=== PATIENT | male | born 1960 | race African-American/Black ===

== ENCOUNTER 2019-07-25 15:04 | Inpatient (IN) | payer OTHER ==
[~2019-07-25] VITALS: Ht 172.7 cm; Wt 74.8 kg
[2019-07-25 15:05] VITALS: BP 128/72
--- NOTE | 2019-07-25 15:05 | NUR ---
ED Nurse Note: Patient BIBA d/t lower abdominal pain since last PM. Patient states he has not been able to urinate x 2 days. Patient has 10/10 bloating pain in abdomen. Patient diaphoretic and grimacing, guarding abdomen. Patient on the civilian technician, blood collected and sent to lab.
[2019-07-25] MEDS ORDERED: Morphine Sulfate 2mg/ml Inj(IV/IM USE ONLY) IVP ONE (15:15)
[2019-07-25] MEDS ORDERED: Omnipaque-300 100ml vial INJ PRN (15:15)
[2019-07-25 16:03] LABS: BASOPHILS % (AUTO) 1.2 % (0.0-2.0); EOSINOPHILS % (AUTO) 2.3 % (0.0-3.0); HEMATOCRIT 47.6 % (42.0-52.0); HEMOGLOBIN 15.8 G/DL (14.2-18.0); MEAN CORPUSCULAR VOLUME 91 FL (80-99); MONOCYTES % (AUTO) 8.2 % (1.0-10.0); NEUTROPHILS % (AUTO) 47.3 % (45.0-75.0); PLATELET COUNT 224 K/UL (150-450); RED BLOOD COUNT 5.21 M/UL (4.70-6.10); RED CELL DISTRIBUTION WIDTH 12.2 % (11.6-14.8); WHITE BLOOD COUNT 5.7 K/UL (4.8-10.8)
--- NOTE | 2019-07-25 16:06 | Diagnostic Imaging Report ---
Indication: Shortness of breath Technique: XRAY Chest 1v Comparison: None Findings: Heart size and mediastinal contours are within normal limits for AP technique. There is no focal airspace consolidation, pneumothorax or pleural effusion. Osseous structures demonstrate no acute abnormality. A piercing is incidentally noted projecting over the left lower chest. Impression: No radiographic evidence of acute cardiopulmonary disease.
[2019-07-25 16:09] LABS: ANION GAP 9 mmol/L (5-15); BLOOD UREA NITROGEN 17 mg/dL (7-18); CALCIUM 9.5 MG/DL (8.5-10.1); CARBON DIOXIDE 29 MMOL/L (21-32); CHLORIDE 92 MMOL/L (98-107); CREATININE 1.3 MG/DL (0.55-1.30); INR 0.9 (0.9-1.1); POTASSIUM 4.4 MMOL/L (3.5-5.1); SODIUM 130 MMOL/L (136-145)
[2019-07-25] MEDS ORDERED: Insulin Human Regular 100units/ml 3ml IV ONE (16:30)
[2019-07-25 16:36] LABS: ALANINE AMINOTRANSFERASE 40 U/L (12-78); ALBUMIN 4.2 G/DL (3.4-5.0); ALKALINE PHOSPHATASE 87 U/L (46-116); ASPARTATE AMINO TRANSFERASE 17 U/L (15-37); BILIRUBIN,TOTAL 0.6 MG/DL (0.2-1.0)
[2019-07-25 17:00] VITALS: BP 124/70
--- NOTE | 2019-07-25 17:14 | Diagnostic Imaging Report ---
EXAM: CT CT Abdomen Pelvis w/Contrast INDICATION: Abdominal pain. COMPARISON: None TECHNIQUE: Axial images were obtained through the abdomen pelvis with intravenous contrast. Sagittal and coronal reformats are generated. All CT scans at this facility are performed using dose modulation techniques as appropriate to a performed exam including the following: automated exposure control with adjustment of the mA and/or kV according to patient size. RADIATION DOSE: CTDIvol: 4.4 mGy DLP: 244.3 mGy-cm Dose information generated by the CT scanner is available in PACS. FINDINGS: There is mild scarring noted in the right middle lobe adjacent to the right heart margin. The liver and spleen are homogeneous. Gallbladder is without sludge or stone and there is no wall thickening. The pancreas is unremarkable. Adrenals are normal in morphology. The kidneys are normal in size, shape and axis. Small bowel loops are nondistended. Increased stool lucencies noted throughout the colon. The appendix is not visualized. There is no free fluid or free air. No pathologic adenopathy demonstrated. [place] catheter noted in the bladder. Prostate is enlarged. There is no suspicious superficial soft tissue or osseous abnormality. IMPRESSION: INCREASED STOOL LUCENCIES THROUGHOUT THE COLON CONSISTENT WITH CONSTIPATION. ENLARGED PROSTATE. HAYS NOTED IN BLADDER.
--- NOTE | 2019-07-25 17:43 | Emergency Room Report ---
History of Present Illness General Chief Complaint: Abdominal Pain Source: Patient (Leigh Quintana) Present Illness HPI 58-year-old male with history of type 2 diabetes currently taking metformin brought in by paramedics due to 10 out of 10 abdominal pain and inability to urinate x1 day. Patient also complains of difficulty defecating. Denies any blood in stool. Denies any nausea vomiting. Denies chest pain, shortness of breath, headache or dizziness. Reports that he has been taking metformin and has been compliant. Denies being sexually active. (Leigh Quintana) Allergies: Coded Allergies: No Known Allergies (Unverified , 07/25/19) COVID-19 Screening Contact w/high risk pt: No Recent Travel to affected area: No Experienced COVID-19 symptoms?: No COVID-19 Testing performed ATTRACTION ATTENDANT: No (Leigh Quintana) Patient History Past Medical History: see triage record Past Surgical History: none Pertinent Family History: none Reviewed Nursing Documentation: PMH: Agreed; PSxH: Agreed (Leigh Quintana) Nursing Documentation-PMH Hx Diabetes: Yes (Leigh Quintana) Review of Systems All Other Systems: negative except mentioned in HPI (Leigh Quintana) Physical Exam Vital Signs Date Time Temp Pulse Resp B/P (MAP) Pulse Ox O2 Delivery O2 Flow Rate FiO2 07/25/19 14:59 98.6 84 18 128/72 (90) 99 Room Air Sp02 EP Interpretation: reviewed, normal General Appearance: alert, GCS 15, non-toxic, mild distress Head: normocephalic, atraumatic Eyes: bilateral eye normal inspection, bilateral eye PERRL ENT: hearing grossly normal, normal pharynx, no angioedema, normal voice Neck: full range of motion, supple/symm/no masses Respiratory: lungs clear, no rhonchi, no retraction Cardiovascular #1: regular rate, rhythm, no edema Gastrointestinal: non-distended, guarding Rectal: deferred Genitourinary: no CVA tenderness Musculoskeletal: back normal, digits/nails normal, no calf tenderness Neurologic: alert, motor strength/tone normal, oriented x3, sensory intact, responsive, speech normal Psychiatric: judgement/insight normal, memory normal, mood/affect normal, no suicidal/homicidal ideation Skin: no rash Lymphatic: no adenopathy (Leigh Quintana) Medical Decision Making PA Attestation All my diagnosis and treatment plans were reviewed ad discussed with my supervising physician Dr. Sheikh (Leigh Quintana) Diagnostic Impression: Primary Impression: DKA (diabetic ketoacidoses) Additional Impression: Urinary retention ER Course 58-year-old male with history of type 2 diabetes currently taking metformin brought in by paramedics due to 10 out of 10 abdominal pain and inability to urinate x1 day. Patient also complains of difficulty defecating. Denies any blood in stool. Denies any nausea vomiting. Denies chest pain, shortness of breath, headache or dizziness. Reports that he has been taking metformin and has been compliant. Denies being sexually active. Ddx considered but are not limited to: appendicitis, cholecystis, gastritis, gastroenteritis, UTI, pyelonephritis, SBO, diverticulitis, influenza with GI manifestation, [place], complication with DKA Vital signs: are WNL, pt. is afebrile H&PE are most consistent with: DKA, urinary retention ORDERS: abdominal CT, abdominal pain set, EKG, ED INTERVENTIONS: NS bolus, insulin Patient was evaluated in the context of the global COVID-19 pandemic, which necessitated consideration that the patient might be at risk for infection with the SARS-COV-2 virus that causes COVID-19. Institutional protocols and algorithms that pertain to the evaluation of patients at risk for COVID-19 are in a state of rapid change based on information relieved by multiple regulatory bodies including the CDC and the federal and state organizations. These policies and algorithms were followed during the patient's care in the ED. Patient was admitted with diagnosis of DKA and urinary retention to Dr. Daniels under supervision of : Kori pt stable at time of admission (Leigh Quintana) ER Course Patient seen by ROSIE Evans. Patient presented with difficulty urinating and constipation for 1 day. Patient found to be hyperglycemic with glucose greater than 900. Patient not in DKA. Patient to be admitted for further treatment and evaluation. (Cynthia Sheikh M.D.) EKG Diagnostic Results Rate: normal Rhythm: NSR ST Segments: no acute changes Other Impression No acute ST changes (Leigh Quintana) Chest X-Ray Diagnostic Results Chest X-Ray Diagnostic Results : Chest X-Ray Ordered: Yes # of Views/Limited/Complete: 1 View Indication: Other EP Interpretation: Yes PA Xray: Interpretation reviewed, by supervising MD, and agrees with findings. Interpretation: no consolidation, no effusion, no pneumothorax Impression: No acute disease Electronically Signed by: Leigh Bullard PA-C (Leigh Quintana) CT/MRI/US Diagnostic Results CT/MRI/US Diagnostic Results : Imaging Test Ordered: CT abdomen pelvis with contrast Impression Enlarged prostate, constipation otherwise within normal limit (Leigh Quintana) Last Vital Signs Date Time Temp Pulse Resp B/P (MAP) Pulse Ox O2 Delivery O2 Flow Rate FiO2 07/25/19 14:59 98.6 84 18 128/72 (90) 99 Room Air (Leigh Quintana) Disposition: ADMITTED INPATIENT Condition: Stable Referrals: NON PHYSICIAN (PCP) Leigh Quintana July 25, 2019 17:43 Cynthia Sheikh M.D. July 25, 2019 18:00
--- NOTE | 2019-07-25 17:45 | Consultation ---
History of Present Illness General Date patient seen: July 26, 2019 Chief Complaint: Abdominal Pain Present Illness HPI This is a 58 year old M with type II DM, essential hypertension , hyperlipidemia and history of incarceration ([id number]) presenting with chief complaint of abdominal pain and difficulty urinating. Patient reports of severe suprapubic pressure and difficulty with urination. He reports of chronic dysuria and inability to initiate urination for the last several years. He reports or prior hospitalization where he had to undergo straight cath/Bower placement to help with his condition. He has failed outpatient urology follow up to address his dysuria. Patient denies any hematuria, fever, chills, flank pain, nausea or vomiting. Patient also mentions that he was diagnosed with DM when during his incarceration. He mentions that he is on multiple PO glucose lowering agents as well as 18 U of Lantus QHS but he has not taken his Lantus since April 2019 after he was released from the shelter. Patient is also not clear which antihypertensive and lipid lowering agent he takes at home. No report of CP, SOB neurological deficit,cough, sick contacts or recent travel. Allergies: Coded Allergies: No Known Allergies (Unverified , 07/25/19) Patient History Healthcare decision maker Resuscitation status Advanced Directive on File Review of Systems All Other Systems: negative except mentioned in HPI Physical Exam General Appearance: WD/WN, no apparent distress Lines, tubes and drains: peripheral HEENT: normocephalic, atraumatic Neck: non-tender, normal alignment Respiratory/Chest: chest wall non-tender, lungs clear, normal breath sounds Cardiovascular/Chest: normal rate Abdomen: normal bowel sounds, non tender, soft Extremities: non-tender, normal inspection Neurologic: alert, oriented x 3 Last 24 Hour Vital Signs Date Time Temp Pulse Resp B/P (MAP) Pulse Ox O2 Delivery O2 Flow Rate FiO2 07/25/19 14:59 98.6 84 18 128/72 (90) 99 Room Air Laboratory Tests Test 07/25/19 15:10 White Blood Count 5.7 K/UL (4.8-10.8) Red Blood Count 5.21 M/UL (4.70-6.10) Hemoglobin 15.8 G/DL (14.2-18.0) Hematocrit 47.6 % (42.0-52.0) Mean Corpuscular Volume 91 FL (80-99) Mean Corpuscular Hemoglobin 30.2 PG (27.0-31.0) Mean Corpuscular Hemoglobin Concent 33.1 G/DL (32.0-36.0) Red Cell Distribution Width 12.2 % (11.6-14.8) Platelet Count 224 K/UL (150-450) Mean Platelet Volume 7.5 FL (6.5-10.1) Neutrophils (%) (Auto) 47.3 % (45.0-75.0) Lymphocytes (%) (Auto) 41.0 % (20.0-45.0) Monocytes (%) (Auto) 8.2 % (1.0-10.0) Eosinophils (%) (Auto) 2.3 % (0.0-3.0) Basophils (%) (Auto) 1.2 % (0.0-2.0) Prothrombin Time 10.1 SEC (9.30-11.50) Prothromb Time International Ratio 0.9 (0.9-1.1) Activated Partial Thromboplast Time 25 SEC (23-33) Sodium Level 130 MMOL/L (136-145) L Potassium Level 4.4 MMOL/L (3.5-5.1) Chloride Level 92 MMOL/L (98-107) L Carbon Dioxide Level 29 MMOL/L (21-32) Anion Gap 9 mmol/L (5-15) Blood Urea Nitrogen 17 mg/dL (7-18) Creatinine 1.3 MG/DL (0.55-1.30) Estimat Glomerular Filtration Rate > 60 mL/min (>60) Glucose Level 872 MG/DL (74-106) *H Calcium Level 9.5 MG/DL (8.5-10.1) Magnesium Level 2.4 MG/DL (1.8-2.4) Total Bilirubin 0.6 MG/DL (0.2-1.0) Aspartate Amino Transf (AST/SGOT) 17 U/L (15-37) Alanine Aminotransferase (ALT/SGPT) 40 U/L (12-78) Alkaline Phosphatase 87 U/L (46-116) Troponin I 0.000 ng/mL (0.000-0.056) Total Protein 7.1 G/DL (6.4-8.2) Albumin 4.2 G/DL (3.4-5.0) Globulin 2.9 g/dL Acetone Level Negative (NEGATIVE) Height (Feet): 5 Height (Inches): 8.00 Weight (Pounds): 165 Medications Current Medications Medications (Trade) Dose Ordered Sig/Giselle Route PRN Reason Start Time Stop Time Status Last Admin Dose Admin Iohexol (OMNIPAQUE-300 100ml) 100 ml NOW PRN INJ Radiology Procedure 07/25/19 15:15 07/27/19 15:12 Sodium Chloride 1,000 ml @ 100 mls/hr Q10H IV 07/25/19 15:15 08/24/19 15:14 07/25/19 15:37 Assessment/Plan Diagnosis [place] I: #DKA #CHANDRIKA #pseudohyponatremia #DM- #BPH #abdominal pain due to constipation - bower placed - IVF - insulin - monitor BG, electolytes and Cr - check A1c - trend sodium Ga Daniels M.D. July 25, 2019 17:45
--- NOTE | 2019-07-25 17:48 | NUR ---
ED Nurse Note: Urine sent to lab
[2019-07-25 18:53] LABS: APPEARANCE,URINE CLEAR; BILIRUBIN, URINE NEGATIVE (NEGATIVE); COLOR,URINE PALE YELLOW; GLUCOSE, URINE (UA) 4+ (NEGATIVE); KETONES,URINE NEGATIVE (NEGATIVE); LEUKOCYTE ESTERASE ,URINE NEGATIVE (NEGATIVE); NITRITE,URINE NEGATIVE (NEGATIVE); PH,URINE 7 (4.5-8.0); PROTEIN,URINE NEGATIVE (NEGATIVE); UROBILINOGEN,URINE NORMAL MG/DL (0.0-1.0)
--- NOTE | 2019-07-25 19:10 | NUR ---
HAND-OFF: Report given to Pari CEVALLOS.
--- NOTE | 2019-07-25 19:10 | NUR ---
ED Nurse Note: Pt resting in bed, VSS no ss of distress noted. All medications orders fulfilled, pt tolerated well no ss of distress noted. Pt output 2500 ml, ERMD aware. Will continue to monitor.
--- NOTE | 2019-07-25 19:15 | NUR ---
ED Nurse Note: Repeat BS check performed: 245 BS, ERMD notified. Will continue to monitor.
--- NOTE | 2019-07-25 20:16 | NUR ---
ED Nurse Note: Report given to Amy Triana on MS unit.
--- NOTE | 2019-07-25 20:25 | NUR ---
ER DISCHARGE NOTE: Patient is cleared to be discharged to [facility] unit per ERMD, pt is aox4, 97% on room air, with stable vital signs. pt was able to verbalize understanding. pt is able to ambulate with steady gait. pt took all belongings. Pt transferred to unit with 1 REGENERATION OPERATOR.
--- NOTE | 2019-07-25 20:28 | Consultation ---
History of Present Illness General Date patient seen: July 26, 2019 Reason for Hospitalization: Abdominal Pain Present Illness HPI 50-year-old male presents [facility] complaining of worsening abdominal pain intractable with some associated nausea. Found to be in DKA admitted for further care and management surgery called to evaluate for abdominal pain. Patient seen, [place], chart reviewed Allergies: Coded Allergies: No Known Allergies (Unverified , 07/25/19) COVID-19 Screening Contact w/high risk pt: No Recent Travel to affected area: No Experienced COVID-19 symptoms?: No Patient History History Provided By: Patient, Medical Record, PMD Healthcare decision maker Resuscitation status Advanced Directive on File Past Medical/Surgical History Past Medical/Surgical History: (1) Urinary retention (2) DKA (diabetic ketoacidoses) (3) Abdominal pain Review of Systems Review of Symptoms General ROS: no weight loss or fever Psychological ROS: no depression or mood changes, no memory loss Ophthalmic ROS: no visual changes or eye irritation ENT ROS: no nasal congestion, hearing loss, dizziness Allergy and Immunology ROS: no allergic symptoms or urticaria Hematological and Lymphatic ROS: no swollen glands, unusual bleeding or bruising Endocrine ROS: no polyuria, polydipsia, weight changes, temperature intolerance Respiratory ROS: no cough, shortness of breath, or wheezing Cardiovascular ROS: no chest pain or dyspnea on exertion Gastrointestinal ROS: denies abdominal pain, bright red blood in stool. Musculoskeletal ROS: no myalgias or arthralgias Neurological ROS: no TIA or stroke symptoms Dermatological ROS: no new or changing skin lesions, rashes or pruritis Physical Exam Physical Exam General appearance: alert, cooperative, no distress, appears stated age Head: Normocephalic, without obvious abnormality, atraumatic Eyes: conjunctivae/corneas clear. PERRL, EOM's intact. Fundi benign Throat: Lips, mucosa, and tongue normal. Teeth and gums normal Neck: supple, symmetrical, trachea midline, no adenopathy, thyroid: not enlarged, symmetric, no tenderness/mass/nodules, no carotid bruit and no JVD Lungs: clear to auscultation bilaterally Heart: regular rate and rhythm, S1, S2 normal, no murmur, click, rub or gallop Abdomen: soft, non-tender. Bowel sounds normal. No masses, no organomegaly Extremities: extremities normal, atraumatic, no cyanosis or edema Pulses: 2+ and symmetric Skin: Skin color, texture, turgor normal. No rashes or lesions Neurologic: Grossly normal Last 24 Hour Vital Signs Date Time Temp Pulse Resp B/P (MAP) Pulse Ox O2 Delivery O2 Flow Rate FiO2 07/25/19 19:00 98.6 07/25/19 17:00 95 19 124/70 98 Room Air 07/25/19 15:05 84 18 Room Air 07/25/19 15:05 98.6 102 18 128/72 99 Room Air 07/25/19 14:59 98.6 84 18 128/72 (90) 99 Room Air Laboratory Tests Test 07/25/19 15:10 07/25/19 17:40 White Blood Count 5.7 K/UL (4.8-10.8) Red Blood Count 5.21 M/UL (4.70-6.10) Hemoglobin 15.8 G/DL (14.2-18.0) Hematocrit 47.6 % (42.0-52.0) Mean Corpuscular Volume 91 FL (80-99) Mean Corpuscular Hemoglobin 30.2 PG (27.0-31.0) Mean Corpuscular Hemoglobin Concent 33.1 G/DL (32.0-36.0) Red Cell Distribution Width 12.2 % (11.6-14.8) Platelet Count 224 K/UL (150-450) Mean Platelet Volume 7.5 FL (6.5-10.1) Neutrophils (%) (Auto) 47.3 % (45.0-75.0) Lymphocytes (%) (Auto) 41.0 % (20.0-45.0) Monocytes (%) (Auto) 8.2 % (1.0-10.0) Eosinophils (%) (Auto) 2.3 % (0.0-3.0) Basophils (%) (Auto) 1.2 % (0.0-2.0) Prothrombin Time 10.1 SEC (9.30-11.50) Prothromb Time International Ratio 0.9 (0.9-1.1) Activated Partial Thromboplast Time 25 SEC (23-33) Sodium Level 130 MMOL/L (136-145) L Potassium Level 4.4 MMOL/L (3.5-5.1) Chloride Level 92 MMOL/L (98-107) L Carbon Dioxide Level 29 MMOL/L (21-32) Anion Gap 9 mmol/L (5-15) Blood Urea Nitrogen 17 mg/dL (7-18) Creatinine 1.3 MG/DL (0.55-1.30) Estimat Glomerular Filtration Rate > 60 mL/min (>60) Glucose Level 872 MG/DL (74-106) *H Calcium Level 9.5 MG/DL (8.5-10.1) Magnesium Level 2.4 MG/DL (1.8-2.4) Total Bilirubin 0.6 MG/DL (0.2-1.0) Aspartate Amino Transf (AST/SGOT) 17 U/L (15-37) Alanine Aminotransferase (ALT/SGPT) 40 U/L (12-78) Alkaline Phosphatase 87 U/L (46-116) Troponin I 0.000 ng/mL (0.000-0.056) Total Protein 7.1 G/DL (6.4-8.2) Albumin 4.2 G/DL (3.4-5.0) Globulin 2.9 g/dL Acetone Level Negative (NEGATIVE) Urine Color Pale yellow Urine Appearance Clear Urine pH 7 (4.5-8.0) Urine Specific [place] 1.005 (1.005-1.035) Urine Protein Negative (NEGATIVE) Urine Glucose (UA) 4+ (NEGATIVE) H Urine Ketones Negative (NEGATIVE) Urine Blood 3+ (NEGATIVE) H Urine Nitrite Negative (NEGATIVE) Urine Bilirubin Negative (NEGATIVE) Urine Urobilinogen Normal MG/DL (0.0-1.0) Urine Leukocyte Esterase Negative (NEGATIVE) Urine RBC 10-15 /HPF (0 - 0) H Urine WBC 0 /HPF (0 - 0) Urine Squamous Epithelial Cells None /LPF (NONE/OCC) Urine Bacteria None /HPF (NONE) Height (Feet): 5 Height (Inches): 8.00 Weight (Pounds): 165 Medications Current Medications Medications (Trade) Dose Ordered Sig/Giselle Route PRN Reason Start Time Stop Time Status Last Admin Dose Admin Iohexol (OMNIPAQUE-300 100ml) 100 ml NOW PRN INJ Radiology Procedure 07/25/19 15:15 07/27/19 15:12 Sodium Chloride 1,000 ml @ 100 mls/hr Q10H IV 07/25/19 15:15 08/24/19 15:14 07/25/19 15:37 Assessment/Plan Problem List: (1) Abdominal pain Assessment & Plan: Patient with abdominal pain etiology unknown DKA abnormal labs Abdominal exam fairly benign though does have some discomfort. Potential crampy abdominal pain related to enteritis No acute surgical invention planned Okay for diet We will follow with recommendations thank you ICD Codes: R10.9 - Unspecified abdominal pain SNOMED: 33195875 (2) Urinary retention ICD Codes: R33.9 - Retention of urine, unspecified SNOMED: 697999942 (3) DKA (diabetic ketoacidoses) ICD Codes: E11.10 - Type 2 diabetes mellitus with ketoacidosis without coma SNOMED: 976479133, [id number] Arslan Lackey July 25, 2019 20:28
--- NOTE | 2019-07-25 20:45 | NUR ---
NURSE NOTES: Pt. received from BAN Yañez. Pt. AAOx4, on room air, breathing even and unlabored with no indication of respiratory distress and no complaints of pain. IV noted left AC 20g intact and patent. Em intact and patent, draining yellow urine well. Skin intact, VSS, belongings checked and verified, pt. requested to keep all belongings. Pt. oriented to room, given call light and instructed on patient safety and utilizing call light. Bed is low and locked, side rails x2 up, bed alarm active. Will call Dr. Daniels for admitting orders and will continue to monitor.
--- NOTE | 2019-07-25 20:50 | NUR ---
NURSE NOTES: Dr. Daniels instructed to call Dr. Foote for admission orders.
--- NOTE | 2019-07-25 21:26 | History and Physical ---
History of Present Illness General Date patient seen: July 25, 2019 Reason for Hospitalization: Abdominal PainDysuriaHyperglycemia Present Illness HPI Mr. Chowdary is a58 YO M with type II DM, essential hypertension, hyperlipidemia and history of incarceration ([id number]) presenting with chief complaint of abdominal pain and difficulty urinating. Patient reports of severe suprapubic pressure and difficulty with urination. He reports of chronic dysuria and inability to initiate urination for the last several years. He reports or prior hospitalization where he had to undergo straight cath/Em placement to help with his condition. He has failed outpatient urology follow up to address his dysuria. Patient denies any hematuria, fever, chills, flank pain, nausea or vomiting. Patient also mentions that he was diagnosed with DM when during his incarceration. He mentions that he is on multiple PO glucose lowering agents as well as 18 U of Lantus QHS but he has not taken his Lantus since April 2019 after he was released from the retirement. Patient is also not clear which antihypertensive and lipid lowering agent he takes at home. Patient denies any CP,SOB, neurological deficit,cough, sick contacts or recent travel. On arrival to the ED, vitals were unremarkable. The CMP significant for Na: 130 and glucose 872 without any evidence of ketones in the urine. He is being admitted for further observation and medical management. Allergies: Coded Allergies: No Known Allergies (Unverified , 07/25/19) COVID-19 Screening Contact w/high risk pt: No Recent Travel to affected area: No Experienced COVID-19 symptoms?: No Patient History Healthcare decision maker Resuscitation status Advanced Directive on File Review of Systems Constitutional: Reports: no symptoms Eye: Reports: no symptoms ENT: Reports: no symptoms Respiratory: Reports: no symptoms Cardiovascular: Reports: no symptoms Genitourinary: Reports: dysuria, retention Musculoskeletal: Reports: no symptoms Skin: Reports: no symptoms Psychiatric: Reports: no symptoms Neurological: Reports: no symptoms Endocrine: Reports: no symptoms Hematologic/Lymphatic: Reports: no symptoms Physical Exam General Appearance: no apparent distress, alert Lines, tubes and drains: peripheral HEENT: normocephalic, atraumatic Neck: non-tender, normal alignment, normal inspection Respiratory/Chest: chest wall non-tender, no respiratory distress, no accessory muscle use Cardiovascular/Chest: normal peripheral pulses, normal rate, regular rhythm Abdomen: normal bowel sounds, non tender, soft, no organomegaly, no mass Genitourinary/Rectal: other - Em in place Extremities: normal range of motion, non-tender Skin Exam: normal pigmentation Neurologic: alert, oriented x 3, responsive Musculoskeletal: normal muscle bulk Last 24 Hour Vital Signs Date Time Temp Pulse Resp B/P (MAP) Pulse Ox O2 Delivery O2 Flow Rate FiO2 07/25/19 20:25 98.6 67 16 113/66 98 Room Air 07/25/19 19:00 98.6 07/25/19 17:00 95 19 124/70 98 Room Air 07/25/19 15:05 84 18 Room Air 07/25/19 15:05 98.6 102 18 128/72 99 Room Air 07/25/19 14:59 98.6 84 18 128/72 (90) 99 Room Air Laboratory Tests Test 07/25/19 15:10 07/25/19 17:40 White Blood Count 5.7 K/UL (4.8-10.8) Red Blood Count 5.21 M/UL (4.70-6.10) Hemoglobin 15.8 G/DL (14.2-18.0) Hematocrit 47.6 % (42.0-52.0) Mean Corpuscular Volume 91 FL (80-99) Mean Corpuscular Hemoglobin 30.2 PG (27.0-31.0) Mean Corpuscular Hemoglobin Concent 33.1 G/DL (32.0-36.0) Red Cell Distribution Width 12.2 % (11.6-14.8) Platelet Count 224 K/UL (150-450) Mean Platelet Volume 7.5 FL (6.5-10.1) Neutrophils (%) (Auto) 47.3 % (45.0-75.0) Lymphocytes (%) (Auto) 41.0 % (20.0-45.0) Monocytes (%) (Auto) 8.2 % (1.0-10.0) Eosinophils (%) (Auto) 2.3 % (0.0-3.0) Basophils (%) (Auto) 1.2 % (0.0-2.0) Prothrombin Time 10.1 SEC (9.30-11.50) Prothromb Time International Ratio 0.9 (0.9-1.1) Activated Partial Thromboplast Time 25 SEC (23-33) Sodium Level 130 MMOL/L (136-145) L Potassium Level 4.4 MMOL/L (3.5-5.1) Chloride Level 92 MMOL/L (98-107) L Carbon Dioxide Level 29 MMOL/L (21-32) Anion Gap 9 mmol/L (5-15) Blood Urea Nitrogen 17 mg/dL (7-18) Creatinine 1.3 MG/DL (0.55-1.30) Estimat Glomerular Filtration Rate > 60 mL/min (>60) Glucose Level 872 MG/DL (74-106) *H Calcium Level 9.5 MG/DL (8.5-10.1) Magnesium Level 2.4 MG/DL (1.8-2.4) Total Bilirubin 0.6 MG/DL (0.2-1.0) Aspartate Amino Transf (AST/SGOT) 17 U/L (15-37) Alanine Aminotransferase (ALT/SGPT) 40 U/L (12-78) Alkaline Phosphatase 87 U/L (46-116) Troponin I 0.000 ng/mL (0.000-0.056) Total Protein 7.1 G/DL (6.4-8.2) Albumin 4.2 G/DL (3.4-5.0) Globulin 2.9 g/dL Acetone Level Negative (NEGATIVE) Urine Color Pale yellow Urine Appearance Clear Urine pH 7 (4.5-8.0) Urine Specific [place] 1.005 (1.005-1.035) Urine Protein Negative (NEGATIVE) Urine Glucose (UA) 4+ (NEGATIVE) H Urine Ketones Negative (NEGATIVE) Urine Blood 3+ (NEGATIVE) H Urine Nitrite Negative (NEGATIVE) Urine Bilirubin Negative (NEGATIVE) Urine Urobilinogen Normal MG/DL (0.0-1.0) Urine Leukocyte Esterase Negative (NEGATIVE) Urine RBC 10-15 /HPF (0 - 0) H Urine WBC 0 /HPF (0 - 0) Urine Squamous Epithelial Cells None /LPF (NONE/OCC) Urine Bacteria None /HPF (NONE) Height (Feet): 5 Height (Inches): 8.00 Weight (Pounds): 165 Medications Current Medications Medications (Trade) Dose Ordered Sig/Giselle Route PRN Reason Start Time Stop Time Status Last Admin Dose Admin Iohexol (OMNIPAQUE-300 100ml) 100 ml NOW PRN INJ Radiology Procedure 07/25/19 15:15 07/27/19 15:12 Sodium Chloride 1,000 ml @ 100 mls/hr Q10H IV 07/25/19 15:15 08/24/19 15:14 07/25/19 15:37 Assessment/Plan Assessment/Plan: 58 YO M with DMII, HTN, HLD and history of incarceration (2006- 2019) presenting with suprapubic pain Patient found to have significant urinary retention requiring Em catheter. Parent's labs values also significant for hyperglycemia with serum glucose: 872. #Insulin dependant type II DM - Uncontrolled. #Hyperglycemia #Medication non-compliance -Serum g; No signs of DKA -s/p 10U of regular insulin in the Emergency Department. -Admit to inpatient. -Initiate insulin sliding scale. -Insulin Levemir 10U QHS. -Diabetic diet. -IVF 75 cc/hr -A1c ordered. -A.M lipid panel ordered. -Endocrinology consult in the A.M. -Importance of medication compliance emphasized. #Urinary retention-Chronic -Etiologies include severe BPH vs. obstructive mass lesion of the urinary tract -Continue with Em catheter. -UA with reflex to culture ordered. -Urology consultation in the A.M. #Essential hypertension: -Home medications unknown. -Currently stable -Continue to monitor. -PRN antihypertensives. #Hyperlipidemia: -Home medication unknown. -Lipid panel ordered. -Will initiate Lipitor 80 in the setting of uncontrolled type II DM and primary hypertension. I spent~72~minutes on this patient's case, and 35~minutes was dedicated to counseling and/or care coordination. Case discussed extensively with the caregiver (Mika). Case discussed with the RN. I spent an additional 32~min on chart review including prior consult notes, progress notes, procedures, imaging, labs hemodynamics and clinical documentation. Nain Fregoso M.D. July 25, 2019 21:26
--- NOTE | 2019-07-25 22:00 | NUR ---
NURSE NOTES: Orders received from Dr. Fregoso, will implement and continue with plan of care.
[2019-07-26] VITALS: BP 107/72
[2019-07-26 00:52] LABS: APPEARANCE,URINE CLEAR; BILIRUBIN, URINE NEGATIVE (NEGATIVE); COLOR,URINE PALE YELLOW; GLUCOSE, URINE (UA) 4+ (NEGATIVE); KETONES,URINE NEGATIVE (NEGATIVE); LEUKOCYTE ESTERASE ,URINE NEGATIVE (NEGATIVE); NITRITE,URINE NEGATIVE (NEGATIVE); PH,URINE 6.5 (4.5-8.0); PROTEIN,URINE NEGATIVE (NEGATIVE); UROBILINOGEN,URINE NORMAL MG/DL (0.0-1.0)
[2019-07-26 04:00] VITALS: BP 105/74
[2019-07-26] MEDS: NovoLOG Insulin Flexpen SUBQ SCH ×2 (06:04→12:56)
[2019-07-26 07:27] LABS: BASOPHILS % (AUTO) 1.4 % (0.0-2.0); EOSINOPHILS % (AUTO) 3.3 % (0.0-3.0); HEMATOCRIT 38.9 % (42.0-52.0); HEMOGLOBIN 14.4 G/DL (14.2-18.0); LYMPHOCYTES % (AUTO) 31.9 % (20.0-45.0); MEAN CORPUSCULAR VOLUME 84 FL (80-99); NEUTROPHILS % (AUTO) 56.4 % (45.0-75.0); PLATELET COUNT 192 K/UL (150-450); RED BLOOD COUNT 4.64 M/UL (4.70-6.10); RED CELL DISTRIBUTION WIDTH 10.8 % (11.6-14.8); WHITE BLOOD COUNT 5.5 K/UL (4.8-10.8)
--- NOTE | 2019-07-26 07:44 | NUR ---
HAND-OFF: Report given to BAN Tapia.
--- NOTE | 2019-07-26 07:55 | NUR ---
Made AM rounds, pt is asleep in bed. respiration is even and unlabored. no facial grimacing for pain and discomfort noted. no acute distress noted at this time. LAC IV is inplace, bed locked for safety. call light is within reach.
[2019-07-26 07:58] LABS: ALANINE AMINOTRANSFERASE 37 U/L (12-78); ALBUMIN 3.1 G/DL (3.4-5.0); ALBUMIN/GLOBULIN RATIO 1.2 (1.0-2.7); ALKALINE PHOSPHATASE 60 U/L (46-116); ANION GAP 6 mmol/L (5-15); ASPARTATE AMINO TRANSFERASE 22 U/L (15-37); BILIRUBIN,TOTAL 0.9 MG/DL (0.2-1.0); BLOOD UREA NITROGEN 11 mg/dL (7-18); CALCIUM 8.3 MG/DL (8.5-10.1); CARBON DIOXIDE 28 MMOL/L (21-32); CHLORIDE 107 MMOL/L (98-107); CHOLESTEROL 165 MG/DL (< 200); CREATININE 1.1 MG/DL (0.55-1.30); HDL CHOLESTEROL 62 MG/DL (40-60); PHOSPHORUS 2.6 MG/DL (2.5-4.9); POTASSIUM 4.1 MMOL/L (3.5-5.1); SODIUM 140 MMOL/L (136-145); TRIGLYCERIDES 53 MG/DL (30-150)
[2019-07-26] MEDS ORDERED: Heparin 5000 units/ml inj SUBQ SCH (09:00)
--- NOTE | 2019-07-26 10:50 | Surgery Progress Note ---
Surgery Progress Note Subjective Symptoms: improved, tolerating diet, passing flatus, pain decreased Objective Last 24 Hour Vital Signs Date Time Temp Pulse Resp B/P (MAP) Pulse Ox O2 Delivery O2 Flow Rate FiO2 07/26/19 04:00 98.0 65 18 105/74 (84) 97 07/26/19 00:00 97.1 57 16 107/72 (84) 97 07/25/19 22:30 Room Air 07/25/19 20:25 98.6 67 16 113/66 98 Room Air 07/25/19 19:00 98.6 07/25/19 17:00 95 19 124/70 98 Room Air 07/25/19 15:05 84 18 Room Air 07/25/19 15:05 98.6 102 18 128/72 99 Room Air 07/25/19 14:59 98.6 84 18 128/72 (90) 99 Room Air I&O Intake and Output 07/25/19 07/26/19 19:00 07:00 Intake Total 0 ml 825 ml Output Total 2700 ml Balance 0 ml -1875 ml Intake Oral 0 ml 300 ml IV Total 525 ml Output Urine Total 2700 ml # Voids 1 Cardiovascular: RSR Respiratory: clear Abdomen: soft, non-tender, present bowel sounds Extremities: no edema, no tenderness, no cyanosis Laboratory Tests Test 07/25/19 15:10 07/25/19 17:40 07/26/19 00:30 07/26/19 06:45 White Blood Count 5.7 K/UL (4.8-10.8) 5.5 K/UL (4.8-10.8) Red Blood Count 5.21 M/UL (4.70-6.10) 4.64 M/UL (4.70-6.10) L Hemoglobin 15.8 G/DL (14.2-18.0) 14.4 G/DL (14.2-18.0) Hematocrit 47.6 % (42.0-52.0) 38.9 % (42.0-52.0) L Mean Corpuscular Volume 91 FL (80-99) 84 FL (80-99) Mean Corpuscular Hemoglobin 30.2 PG (27.0-31.0) 30.9 PG (27.0-31.0) Mean Corpuscular Hemoglobin Concent 33.1 G/DL (32.0-36.0) 36.9 G/DL (32.0-36.0) H Red Cell Distribution Width 12.2 % (11.6-14.8) 10.8 % (11.6-14.8) L Platelet Count 224 K/UL (150-450) 192 K/UL (150-450) Mean Platelet Volume 7.5 FL (6.5-10.1) 6.3 FL (6.5-10.1) L Neutrophils (%) (Auto) 47.3 % (45.0-75.0) 56.4 % (45.0-75.0) Lymphocytes (%) (Auto) 41.0 % (20.0-45.0) 31.9 % (20.0-45.0) Monocytes (%) (Auto) 8.2 % (1.0-10.0) 7.0 % (1.0-10.0) Eosinophils (%) (Auto) 2.3 % (0.0-3.0) 3.3 % (0.0-3.0) H Basophils (%) (Auto) 1.2 % (0.0-2.0) 1.4 % (0.0-2.0) Prothrombin Time 10.1 SEC (9.30-11.50) Prothromb Time International Ratio 0.9 (0.9-1.1) Activated Partial Thromboplast Time 25 SEC (23-33) Sodium Level 130 MMOL/L (136-145) L 140 MMOL/L (136-145) # Potassium Level 4.4 MMOL/L (3.5-5.1) 4.1 MMOL/L (3.5-5.1) Chloride Level 92 MMOL/L (98-107) L 107 MMOL/L (98-107) Carbon Dioxide Level 29 MMOL/L (21-32) 28 MMOL/L (21-32) Anion Gap 9 mmol/L (5-15) 6 mmol/L (5-15) Blood Urea Nitrogen 17 mg/dL (7-18) 11 mg/dL (7-18) Creatinine 1.3 MG/DL (0.55-1.30) 1.1 MG/DL (0.55-1.30) Estimat Glomerular Filtration Rate > 60 mL/min (>60) > 60 mL/min (>60) Glucose Level 872 MG/DL (74-106) *H 306 MG/DL (74-106) #H Calcium Level 9.5 MG/DL (8.5-10.1) 8.3 MG/DL (8.5-10.1) L Magnesium Level 2.4 MG/DL (1.8-2.4) 1.9 MG/DL (1.8-2.4) Total Bilirubin 0.6 MG/DL (0.2-1.0) 0.9 MG/DL (0.2-1.0) Aspartate Amino Transf (AST/SGOT) 17 U/L (15-37) 22 U/L (15-37) Alanine Aminotransferase (ALT/SGPT) 40 U/L (12-78) 37 U/L (12-78) Alkaline Phosphatase 87 U/L (46-116) 60 U/L (46-116) Troponin I 0.000 ng/mL (0.000-0.056) 0.000 ng/mL (0.000-0.056) Total Protein 7.1 G/DL (6.4-8.2) 5.7 G/DL (6.4-8.2) L Albumin 4.2 G/DL (3.4-5.0) 3.1 G/DL (3.4-5.0) L Globulin 2.9 g/dL 2.6 g/dL Acetone Level Negative (NEGATIVE) Urine Color Pale yellow Pale yellow Urine Appearance Clear Clear Urine pH 7 (4.5-8.0) 6.5 (4.5-8.0) Urine Specific [place] 1.005 (1.005-1.035) 1.015 (1.005-1.035) Urine Protein Negative (NEGATIVE) Negative (NEGATIVE) Urine Glucose (UA) 4+ (NEGATIVE) H 4+ (NEGATIVE) H Urine Ketones Negative (NEGATIVE) Negative (NEGATIVE) Urine Blood 3+ (NEGATIVE) H 2+ (NEGATIVE) H Urine Nitrite Negative (NEGATIVE) Negative (NEGATIVE) Urine Bilirubin Negative (NEGATIVE) Negative (NEGATIVE) Urine Urobilinogen Normal MG/DL (0.0-1.0) Normal MG/DL (0.0-1.0) Urine Leukocyte Esterase Negative (NEGATIVE) Negative (NEGATIVE) Urine RBC 10-15 /HPF (0 - 0) H 2-4 /HPF (0 - 0) H Urine WBC 0 /HPF (0 - 0) 2-4 /HPF (0 - 0) Urine Squamous Epithelial Cells None /LPF (NONE/OCC) Occasional /LPF Urine Bacteria None /HPF (NONE) Occasional /HPF (NONE) Hemoglobin A1c 11.7 % (4.3-6.0) H Uric Acid 2.2 MG/DL (2.6-7.2) L Phosphorus Level 2.6 MG/DL (2.5-4.9) Albumin/Globulin Ratio 1.2 (1.0-2.7) Triglycerides Level 53 MG/DL (30-150) Cholesterol Level 165 MG/DL (< 200) LDL Cholesterol 92 mg/dL (<100) HDL Cholesterol 62 MG/DL (40-60) H Cholesterol/HDL Ratio 2.7 (3.3-4.4) L Plan Problems: (1) Abdominal pain Assessment & Plan: Patient with abdominal pain etiology unknown DKA abnormal labs Abdominal exam fairly benign though does have some discomfort. Potential crampy abdominal pain related to enteritis No acute surgical invention planned Okay for diet We will follow with recommendations thank you Pain resolved since admission. No nausea vomit fever chills Okay for diet Pain likely urinary retention his Em placed in good output since significantly improved Antibiotics per medical team for potential UTI (2) Urinary retention (3) DKA (diabetic ketoacidoses) Arslan Lackey July 26, 2019 10:50
--- NOTE | 2019-07-26 11:05 | General Progress Note ---
Assessment/Plan Assessment/Plan: Assessment #HHS, AG WNL, Bicarb WNL, Acetone negative #Urinary Retention w/ enlarged prostate on CT A/P s/p bower cath #DMII, A1C noted just above 11 #Dehydration #Constipation Plan Consult to Endocrine and Uro S/P IV bolus Initiate weight based insulin dosing, goal blood sugar below 180 while inpatient , initiate Levemir 10 units BID PSA studies, Bower Cath , Tamsulosin Atorvastatin and Jared-Inhibitor for renal protection Bowel Regimen NS @ 100 cc/hr DVT ppx Diabetes Education/ 1800 ADA diet Subjective Allergies: Coded Allergies: No Known Allergies (Unverified , 07/25/19) Objective Last 24 Hour Vital Signs Date Time Temp Pulse Resp B/P (MAP) Pulse Ox O2 Delivery O2 Flow Rate FiO2 07/26/19 09:00 Room Air 07/26/19 04:00 98.0 65 18 105/74 (84) 97 07/26/19 00:00 97.1 57 16 107/72 (84) 97 07/25/19 22:30 Room Air 07/25/19 20:25 98.6 67 16 113/66 98 Room Air 07/25/19 19:00 98.6 07/25/19 17:00 95 19 124/70 98 Room Air 07/25/19 15:05 84 18 Room Air 07/25/19 15:05 98.6 102 18 128/72 99 Room Air 07/25/19 14:59 98.6 84 18 128/72 (90) 99 Room Air Intake and Output 07/25/19 07/26/19 19:00 07:00 Intake Total 0 ml 825 ml Output Total 2700 ml Balance 0 ml -1875 ml Intake Oral 0 ml 300 ml IV Total 525 ml Output Urine Total 2700 ml # Voids 1 Laboratory Tests 07/25/19 15:10: White Blood Count 5.7, Red Blood Count 5.21, Hemoglobin 15.8, Hematocrit 47.6, Mean Corpuscular Volume 91, Mean Corpuscular Hemoglobin 30.2, Mean Corpuscular Hemoglobin Concent 33.1, Red Cell Distribution Width 12.2, Platelet Count 224, Mean Platelet Volume 7.5, Neutrophils (%) (Auto) 47.3, Lymphocytes (%) (Auto) 41.0, Monocytes (%) (Auto) 8.2, Eosinophils (%) (Auto) 2.3, Basophils (%) (Auto ) 1.2, Prothrombin Time 10.1, Prothromb Time International Ratio 0.9, Activated Partial Thromboplast Time 25, Sodium Level 130L, Potassium Level 4.4, Chloride Level 92L, Carbon Dioxide Level 29, Anion Gap 9, Blood Urea Nitrogen 17, Creatinine 1.3, Estimat Glomerular Filtration Rate > 60, Glucose Level 872*H, Calcium Level 9.5, Magnesium Level 2.4, Total Bilirubin 0.6, Aspartate Amino Transf (AST/SGOT) 17, Alanine Aminotransferase (ALT/SGPT) 40, Alkaline Phosphatase 87, Troponin I 0.000, Total Protein 7.1, Albumin 4.2, Globulin 2.9, Acetone Level Negative 07/25/19 17:40: Urine Color Pale yellow, Urine Appearance Clear, Urine pH 7, Urine Specific [place] 1.005, Urine Protein Negative, Urine Glucose (UA) 4+H, Urine Ketones Negative, Urine Blood 3+H, Urine Nitrite Negative, Urine Bilirubin Negative, Urine Urobilinogen Normal, Urine Leukocyte Esterase Negative, Urine RBC 10-15H, Urine WBC 0, Urine Squamous Epithelial Cells None, Urine Bacteria None 07/26/19 00:30: Urine Color Pale yellow, Urine Appearance Clear, Urine pH 6.5, Urine Specific [place] 1.015, Urine Protein Negative, Urine Glucose (UA) 4+H, Urine Ketones Negative, Urine Blood 2+H, Urine Nitrite Negative, Urine Bilirubin Negative, Urine Urobilinogen Normal, Urine Leukocyte Esterase Negative, Urine RBC 2-4H, Urine WBC 2-4, Urine Squamous Epithelial Cells Occasional, Urine Bacteria Occasional 07/26/19 06:45: White Blood Count 5.5, Red Blood Count 4.64L, Hemoglobin 14.4, Hematocrit 38.9L , Mean Corpuscular Volume 84, Mean Corpuscular Hemoglobin 30.9, Mean Corpuscular Hemoglobin Concent 36.9H, Red Cell Distribution Width 10.8L, Platelet Count 192, Mean Platelet Volume 6.3L, Neutrophils (%) (Auto) 56.4, Lymphocytes (%) (Auto) 31.9, Monocytes (%) (Auto) 7.0, Eosinophils (%) (Auto) 3.3H, Basophils (%) (Auto) 1.4, Sodium Level 140#, Potassium Level 4.1, Chloride Level 107, Carbon Dioxide Level 28, Anion Gap 6, Blood Urea Nitrogen 11 , Creatinine 1.1, Estimat Glomerular Filtration Rate > 60, Glucose Level 306#H, Calcium Level 8.3L, Magnesium Level 1.9, Total Bilirubin 0.9, Aspartate Amino Transf (AST/SGOT) 22, Alanine Aminotransferase (ALT/SGPT) 37, Alkaline Phosphatase 60, Troponin I 0.000, Total Protein 5.7L, Albumin 3.1L, Globulin 2.6 , Hemoglobin A1c 11.7H, Uric Acid 2.2L, Phosphorus Level 2.6, Albumin/Globulin Ratio 1.2, Triglycerides Level 53, Cholesterol Level 165, LDL Cholesterol 92, HDL Cholesterol 62H, Cholesterol/HDL Ratio 2.7L Height (Feet): 5 Height (Inches): 8.00 Weight (Pounds): 165 Dafne Olivarez D.O. July 26, 2019 11:05
[2019-07-26] MEDS ORDERED: Docusate 100mg cap ORAL PRN (11:15)
[2019-07-26] MEDS ORDERED: Losartan 25mg tab ORAL SCH (11:15)
--- NOTE | 2019-07-26 11:45 | Consultation ---
DATE OF CONSULTATION: 07/26/2019 PULMONARY CONSULTATION CONSULTING PHYSICIAN: Ben Gardner MD. HISTORY OF PRESENT ILLNESS: This is a 58-year-old male with history of diabetes mellitus, on metformin. He was brought to the hospital with abdominal pain. He also reported dysuria as well as inability to urinate. The patient also reported difficulty with having a bowel movement. He was admitted to the hospital for subsequent management and care, was found to have significantly elevated glucose 872 with an anion gap of 9 and normal renal function. At this time, the patient states he is feeling better. The patient underwent imaging studies, which showed scarring in the right middle lobe just in the right heart margin suspicious of previous process. No other significant pathology was noted on imaging studies. PAST MEDICAL HISTORY: Diabetes mellitus. PAST SURGICAL HISTORY: None reported. ALLERGIES: None reported. REVIEW OF SYSTEMS: Denies any headaches, hematemesis, melena, hematochezia, night sweats, or weight loss. PHYSICAL EXAMINATION: VITAL SIGNS: Blood pressure 120/70, heart rate 84, respiratory rate , afebrile, O2 saturation 99% on room air. GENERAL: Reveals a 58-year-old male. HEENT: Unremarkable. CHEST: Clear breath sounds bilaterally. ABDOMEN: Soft. EXTREMITIES: There is no edema. NEUROLOGIC: Nonfocal. IMPRESSION: 1. DKA. 2. Constipation. 3. Retention of urine. 4. Right middle lobe scar. DISCUSSION: Currently, his sugars have improved with hydration and insulin. Most recent glucose is 306 obtained this morning. The other laboratory testing is unremarkable. Acetones are negative. I suspect he had significant hyperglycemia with no ketosis DKA. Lung CT shows evidence of right middle lobe scarring, which is at this point, not an active process. Recommend outpatient workup and follow up as needed. 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 Ben Gardner M.D. DR: LEONA JOB#: [id number] CC:
[2019-07-26 12:00] VITALS: BP 117/56
--- NOTE | 2019-07-26 12:45 | Nephrology Progress Note ---
Assessment/Plan Plan #DKA #CHANDRIKA #pseudohyponatremia #DM- #BPH #abdominal pain due to constipation - bower placed - IVF - insulin - monitor BG, electolytes and Cr - check A1c - trend sodium Subjective ROS Limited/Unobtainable: No Constitutional: Denies: no symptoms, chills, diaphoresis, fever, malaise, weakness, other HEENT: Denies: no symptoms, eye pain, blurred vision, tearing, double vision, ear pain, ear discharge, nose pain, nose congestion, throat pain, throat swelling, mouth pain, mouth swelling, other Genitourinary: Denies: no symptoms, burning, discharge, frequency, flank pain, hematuria, incontinence, pain, urgency, other Neurologic/Psychiatric: Denies: no symptoms, anxiety, depressed, emotional problems, headache, numbness, paresthesia, pre-existing deficit, seizure, tingling, tremors, weakness, other Subjective Abdominal pain better bower in place evaluated by urology no chest or sob Objective Objective Last 24 Hour Vital Signs Date Time Temp Pulse Resp B/P (MAP) Pulse Ox O2 Delivery O2 Flow Rate FiO2 07/26/19 09:00 Room Air 07/26/19 04:00 98.0 65 18 105/74 (84) 97 07/26/19 00:00 97.1 57 16 107/72 (84) 97 07/25/19 22:30 Room Air 07/25/19 20:25 98.6 67 16 113/66 98 Room Air 07/25/19 19:00 98.6 07/25/19 17:00 95 19 124/70 98 Room Air 07/25/19 15:05 84 18 Room Air 07/25/19 15:05 98.6 102 18 128/72 99 Room Air 07/25/19 14:59 98.6 84 18 128/72 (90) 99 Room Air Intake and Output 07/25/19 07/26/19 19:00 07:00 Intake Total 0 ml 825 ml Output Total 2700 ml Balance 0 ml -1875 ml Intake Oral 0 ml 300 ml IV Total 525 ml Output Urine Total 2700 ml # Voids 1 Laboratory Tests 07/25/19 15:10: White Blood Count 5.7, Red Blood Count 5.21, Hemoglobin 15.8, Hematocrit 47.6, Mean Corpuscular Volume 91, Mean Corpuscular Hemoglobin 30.2, Mean Corpuscular Hemoglobin Concent 33.1, Red Cell Distribution Width 12.2, Platelet Count 224, Mean Platelet Volume 7.5, Neutrophils (%) (Auto) 47.3, Lymphocytes (%) (Auto) 41.0, Monocytes (%) (Auto) 8.2, Eosinophils (%) (Auto) 2.3, Basophils (%) (Auto ) 1.2, Prothrombin Time 10.1, Prothromb Time International Ratio 0.9, Activated Partial Thromboplast Time 25, Sodium Level 130L, Potassium Level 4.4, Chloride Level 92L, Carbon Dioxide Level 29, Anion Gap 9, Blood Urea Nitrogen 17, Creatinine 1.3, Estimat Glomerular Filtration Rate > 60, Glucose Level 872*H, Calcium Level 9.5, Magnesium Level 2.4, Total Bilirubin 0.6, Aspartate Amino Transf (AST/SGOT) 17, Alanine Aminotransferase (ALT/SGPT) 40, Alkaline Phosphatase 87, Troponin I 0.000, Total Protein 7.1, Albumin 4.2, Globulin 2.9, Acetone Level Negative 07/25/19 17:40: Urine Color Pale yellow, Urine Appearance Clear, Urine pH 7, Urine Specific [place] 1.005, Urine Protein Negative, Urine Glucose (UA) 4+H, Urine Ketones Negative, Urine Blood 3+H, Urine Nitrite Negative, Urine Bilirubin Negative, Urine Urobilinogen Normal, Urine Leukocyte Esterase Negative, Urine RBC 10-15H, Urine WBC 0, Urine Squamous Epithelial Cells None, Urine Bacteria None 07/26/19 00:30: Urine Color Pale yellow, Urine Appearance Clear, Urine pH 6.5, Urine Specific [place] 1.015, Urine Protein Negative, Urine Glucose (UA) 4+H, Urine Ketones Negative, Urine Blood 2+H, Urine Nitrite Negative, Urine Bilirubin Negative, Urine Urobilinogen Normal, Urine Leukocyte Esterase Negative, Urine RBC 2-4H, Urine WBC 2-4, Urine Squamous Epithelial Cells Occasional, Urine Bacteria Occasional 07/26/19 06:45: White Blood Count 5.5, Red Blood Count 4.64L, Hemoglobin 14.4, Hematocrit 38.9L , Mean Corpuscular Volume 84, Mean Corpuscular Hemoglobin 30.9, Mean Corpuscular Hemoglobin Concent 36.9H, Red Cell Distribution Width 10.8L, Platelet Count 192, Mean Platelet Volume 6.3L, Neutrophils (%) (Auto) 56.4, Lymphocytes (%) (Auto) 31.9, Monocytes (%) (Auto) 7.0, Eosinophils (%) (Auto) 3.3H, Basophils (%) (Auto) 1.4, Sodium Level 140#, Potassium Level 4.1, Chloride Level 107, Carbon Dioxide Level 28, Anion Gap 6, Blood Urea Nitrogen 11 , Creatinine 1.1, Estimat Glomerular Filtration Rate > 60, Glucose Level 306#H, Calcium Level 8.3L, Magnesium Level 1.9, Total Bilirubin 0.9, Aspartate Amino Transf (AST/SGOT) 22, Alanine Aminotransferase (ALT/SGPT) 37, Alkaline Phosphatase 60, Troponin I 0.000, Total Protein 5.7L, Albumin 3.1L, Globulin 2.6 , Hemoglobin A1c 11.7H, Uric Acid 2.2L, Phosphorus Level 2.6, Albumin/Globulin Ratio 1.2, Triglycerides Level 53, Cholesterol Level 165, LDL Cholesterol 92, HDL Cholesterol 62H, Cholesterol/HDL Ratio 2.7L, Prostate Specific Antigen 3.87 , Free Prostate Specific Antigen [Pending], Percent Free Prostate Specific Ag [ Pending], Prostate Specific Antigen Total [Pending] Height (Feet): 5 Height (Inches): 8.00 Weight (Pounds): 165 Ga Daniels M.D. July 26, 2019 12:45
--- NOTE | 2019-07-26 14:06 | NUR ---
CASE MANAGEMENT: INITIAL REVIEW 58YR OLD MALE BIBA FROM HOME CC: ABD PAIN ; DIFFICULTY URINATING AND DEFECATING SI: DKA , URIN RETENTION 98.6 18 128/72 99% ON RA BGLU 872 NA 130 CL-92 IS:IV MORPHINE SULFATE X1 IV ZOFRAN X1 IVF NS BOLUS X1 XRAY Chest 1v-No radiographic evidence of acute cardiopulmonary disease. CT Abdomen Pelvis w/Contrast- INCREASED STOOL LUCENCIES THROUGHOUT THE COLON CONSISTENT WITH CONSTIPATION.ENLARGED PROSTATE. HAYS NOTED IN BLADDER. \:4E MED SURG UNIT DCP: HOME WHEN STABLE PLAN: SURGERY CONSULT HYDRATE CONTROL SUGAR CASE MANAGEMENT: REVIEW 07/26/19 SI: DKA , URIN RETENTION 98.1 70 20 117/56 97% ON RA IS:IV NS @75ML/HR PO COZAAR QD HEPARIN SQ BID NOVOLOG SQ QAC&HS \:4E MED SURG UNIT DCP: HOME WHEN STABLE PLAN: EDUCATION ON BG CONTROL DIET EDUCATION BOWEL REGIME
[2019-07-26 16:00] VITALS: BP 106/67
--- NOTE | 2019-07-26 17:50 | NUR ---
patient discharged home without any signs of distress. patient provided with after-care instructions with medication teaching, and diabetic management; patient verbalized understanding of after-care instructions. IV and wrist band removed. patient left with all his belongings; inventory paper signed. Escorted patient downstairs where he can catch a bus. no acute distress noted on patient during discharge.
--- NOTE | 2019-07-26 19:00 | Consultation ---
DATE OF CONSULTATION: 07/26/2019 CONSULTING PHYSICIAN: Jeyson Cesar MD. REFERRING PHYSICIAN: Shree Olivarez MD. HISTORY OF PRESENT ILLNESS: Urinary retention. HISTORY OF PRESENT ILLNESS: This is a 58-year-old gentleman. He came to the emergency room because of abdominal pain and inability to void. A Em catheter was placed in the emergency room. Apparently, he does have a history of enlarged prostate and difficulty voiding in the past. PAST MEDICAL HISTORY: Significant for diabetes. MEDICATIONS: His current medication list was reviewed. ALLERGIES: None. PHYSICAL EXAMINATION: GENERAL: A well-developed, well-nourished male in no acute distress. VITAL SIGNS: Stable. ABDOMEN: Soft. GENITOURINARY: Em is in place. Urine is yellow. LABORATORY DATA: Shows BUN of 11, creatinine 1.1. White count is 5.5, hemoglobin 14.4. UA showed 4+ glucose, 2-4 rbc's. DIAGNOSTIC IMAGING STUDIES: The patient had a CT scan of the abdomen and pelvis. There was mention of normal kidneys and an enlarged prostate. IMPRESSION: 1. Urinary retention. 2. BPH. 3. Probable neurogenic bladder. 4. Microhematuria. PLAN AND DISCUSSION: Again, the patient did have urinary retention, which is likely secondary to BPH-related bladder outlet obstruction and possibly atonic bladder because of diabetes history. Em catheter is indwelling, now it is draining. It is comfortable. I did discuss with primary service. The patient is cleared to go home with a Em catheter indwelling on Flomax and have an outpatient voiding trial. He can also have a cystoscopy electively as an outpatient. Thank you for this consultation. Jeyson Cesar M.D. DR: Merry JOB#: [id number] CC:
[2019-07-26] MEDS ORDERED: Levemir Flexpen SUBQ SCH ×2 (21:00)
[2019-07-26] MEDS ORDERED: Tamsulosin 0.4mg cap ORAL SCH (21:00)
[2019-07-26] MEDS ORDERED: Atorvastatin 80mg tab ORAL SCH (21:00)
--- NOTE | 2019-07-28 18:55 | Discharge Summary ---
Discharge Summary Hospital Course Date of Admission July 25, 2019 at 17:16 Date of Discharge July 26, 2019 at 17:55 Admitting Diagnosis DIABETIC KETOACIDOSIS HPI Mr. Chowdary is a58 YO M with type II DM, essential hypertension, hyperlipidemia and history of incarceration ([id number]) presenting with chief complaint of abdominal pain and difficulty urinating. Patient reports of severe suprapubic pressure and difficulty with urination. He reports of chronic dysuria and inability to initiate urination for the last several years. He reports or prior hospitalization where he had to undergo straight cath/Bower placement to help with his condition. He has failed outpatient urology follow up to address his dysuria. Patient denies any hematuria, fever, chills, flank pain, nausea or vomiting. Patient also mentions that he was diagnosed with DM when during his incarceration. He mentions that he is on multiple PO glucose lowering agents as well as 18 U of Lantus QHS but he has not taken his Lantus since April 2019 after he was released from the shelter. Patient is also not clear which antihypertensive and lipid lowering agent he takes at home. Patient denies any CP,SOB, neurological deficit,cough, sick contacts or recent travel. Hospital Course Assessment #HHS, AG WNL, Bicarb WNL, Acetone negative #Urinary Retention w/ enlarged prostate on CT A/P s/p bower cath #DMII, A1C noted just above 11 #Dehydration #Constipation Plan Consult to Endocrine and Uro S/P IV bolus Initiate weight based insulin dosing, goal blood sugar below 180 while inpatient , initiate Levemir 10 units BID PSA studies, Bower Cath , Tamsulosin Atorvastatin and Jared-Inhibitor for renal protection Bowel Regimen NS @ 100 cc/hr DVT ppx Diabetes Education/ 1800 ADA diet Patient was cleared for discharge home after being seen by urology and getting blood sugar under controlled on 07/26 Discharge Condition Upon Discharge: stable Discharge Vital Signs Last Vital Signs Date Time Temp Pulse Resp B/P (MAP) Pulse Ox O2 Delivery O2 Flow Rate FiO2 07/26/19 16:00 97.9 68 20 106/67 (80) 98 07/26/19 09:00 Room Air Discharge Disposition Patient was discharged to Dafne Olivarez D.O. July 28, 2019 18:55
--- NOTE | 2019-07-29 14:57 | NUR ---
*-* INSURANCE *-* ALL CLINICALS AND REVIEWS HAVE BEEN FAXED TO: ROSY Delgado Ref#[id number] #[phone] fax#[phone] Addendum: 07/29/19 at 1459 by BASHIR ALFARO CM DISCHARGE ARTEAGA ARY ALSO FAXED
== END 2019-07-26 17:55 | disposition home or self-care (01) | DRG 420 ==
LOC: EDBD 15:04 → EMR 15:26 → 4E 17:16 → EDBEDREQ 18:34
DX: E11.10 Type 2 diabetes mellitus with ketoacidosis without coma (principal); N17.9 Acute kidney failure, unspecified; N40.0 Benign prostatic hyperplasia without lower urinary tract symptoms; I10 Essential (primary) hypertension; E78.5 Hyperlipidemia, unspecified; E86.0 Dehydration; K59.00 Constipation, unspecified; E87.1 Hypo-osmolality and hyponatremia; Z91.14 Patient's other noncompliance with medication regimen; N40.1 Benign prostatic hyperplasia with lower urinary tract symptoms; R33.8 Other retention of urine
CPT/HCPCS: 36415; 71045; 74177; 80053; 80061; 81001; 81003; 82009; 82962; 83036; 83735; 84100; 84153; 84154; 84484; 84550; 85025; 85610; 85730; 93005; 96361; 96374; 96375; 99285; J1815; J2405; J7030; S5561

== ENCOUNTER 2019-08-13 04:57 | Emergency (ER) | payer OTHER ==
[~2019-08-13] VITALS: Ht 170.2 cm; Wt 68.0 kg
--- NOTE | 2019-08-13 05:01 | Emergency Room Report ---
History of Present Illness General Chief Complaint: Male Urogenital Problems Source: Patient Present Illness HPI Patient is a 58-year-old male brought in by EMS after increased difficulty with urination. Patient reportedly had prior history of prostate disease. Been unable to urinate for approximally 4 hours.Patient's been having some increased suprapubic fullness. Denies any vomiting or flank pain. Not been having any fever. Previously had removed a Em catheter within the past 1 week. Allergies: Coded Allergies: No Known Allergies (Unverified , 07/25/19) COVID-19 Screening Contact w/high risk pt: No Recent Travel to affected area: No Experienced COVID-19 symptoms?: No Patient History Past Medical History: see triage record Reviewed Nursing Documentation: PMH: Agreed; PSxH: Agreed Nursing Documentation-PMH Hx Cardiac Problems: No Hx Diabetes: Yes Hx Cancer: No Hx Gastrointestinal Problems: No - enlarged prostate Hx Neurological Problems: No Review of Systems All Other Systems: negative except mentioned in HPI Physical Exam General Appearance: well appearing, no apparent distress, alert, GCS 15 Head: normocephalic, atraumatic ENT: hearing grossly normal, normal voice Neck: full range of motion, supple Respiratory: no respiratory distress, speaking full sentences Cardiovascular #1: normal inspection Gastrointestinal: normal inspection, other - Suprapubic fullness Musculoskeletal: no calf tenderness Neurologic: alert, motor strength/tone normal, electrical and radio 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 Differential diagnosis included but was not limited to prosthetic hypertrophy, urinary tract infection , medication reaction among others. Patient has a benign exam and does not appear to require any imaging or laboratory testing at this time. Em catheter was placed and patient had good urine output. Patient was given a prescription for Macrobid. He was advised to follow-up with urology for catheter removal. He was advised to return if any worsening condition or other concerns. This medical record is generated with [employer] diabetes territory manager software. There may be some diabetes territory manager discrepancies related to use of this software Labs Test 08/13/19 05:19 Urine Color Pale yellow Urine Appearance Clear Urine pH 6 (4.5-8.0) Urine Specific [place] 1.010 (1.005-1.035) Urine Protein Negative (NEGATIVE) Urine Glucose (UA) 4+ (NEGATIVE) Urine Ketones Negative (NEGATIVE) Urine Blood 3+ (NEGATIVE) Urine Nitrite Positive (NEGATIVE) Urine Bilirubin Negative (NEGATIVE) Urine Urobilinogen Normal MG/DL (0.0-1.0) Urine Leukocyte Esterase Negative (NEGATIVE) Urine RBC 2-4 /HPF (0 - 0) Urine WBC 0 /HPF (0 - 0) Urine Squamous Epithelial Cells None /LPF (NONE/OCC) Urine Bacteria None /HPF (NONE) Status: improved Disposition: HOME, SELF-CARE Condition: Stable Scripts Tamsulosin HCl (Flomax) 0.4 Mg Cap.er.24h 0.4 MG ORAL DAILY, #14 CAP Prov: Connor Lovelace MD 08/13/19 Nitrofurantoin Monohyd/M-Cryst* (MACROBID 100 MG*) 100 Mg Capsule 100 MG ORAL EVERY 12 HOURS, #14 CAP Prov: Connor Lovelace MD 08/13/19 Connor Lovelace MD Aug 13, 2019 05:01
[2019-08-13 05:03] VITALS: BP 174/92
--- NOTE | 2019-08-13 05:03 | NUR ---
ED Nurse Note: Patient brought in by ambulance, RA 826, with complaints of enlarged prostate and inability to urinate in the last 4 hours. Last attempt was only trickles. Patient is in a great deal of physical pain unable to sit without increase in pain. Will continue to monitor for orders.
--- NOTE | 2019-08-13 05:21 | NUR ---
ED Nurse Note: Em placed successfully with 14fr coude tip catheter. Urine is free flowing, clear and straw in color. Patient expressed immediate relief. Plan is to clamp after a liter of urine has been collected. Urine specimen collected and sent to lab. Will continue to monitor.
[2019-08-13 05:28] LABS: APPEARANCE,URINE CLEAR; BILIRUBIN, URINE NEGATIVE (NEGATIVE); COLOR,URINE PALE YELLOW; GLUCOSE, URINE (UA) 4+ (NEGATIVE); KETONES,URINE NEGATIVE (NEGATIVE); LEUKOCYTE ESTERASE ,URINE NEGATIVE (NEGATIVE); NITRITE,URINE POSITIVE (NEGATIVE); PH,URINE 6 (4.5-8.0); PROTEIN,URINE NEGATIVE (NEGATIVE); UROBILINOGEN,URINE NORMAL MG/DL (0.0-1.0)
--- NOTE | 2019-08-13 05:36 | NUR ---
ED Nurse Note: Urine output currently at 1L. Em clamped per MD order.
[2019-08-13] MEDS ORDERED: FLOMAX0.4 MG ORAL (05:44)
[2019-08-13] MEDS ORDERED: NITROFURANTOIN100 M2 ORAL (05:44)
--- NOTE | 2019-08-13 05:58 | NUR ---
ED Nurse Note: Patient cleared for discharge by ERMIgnacia. Patient verbalized understanding of discharge instructions. Patient also instructed to contact primary care for referral to urology for ongoing urinary issues. Patient provided with a leg bag for convenience. Patient provided with a cup od water prior to departure. Patient departed, ambulatory with steady gait in stable condition and with all his belongings.
[2019-08-13 06:09] VITALS: BP 174/92
== END 2019-08-13 06:09 | disposition home or self-care (01) ==
LOC: EDUNIT# 04:57 → EDBD 04:57 → EMR 05:12
DX: R33.9 Retention of urine, unspecified (principal); E11.9 Type 2 diabetes mellitus without complications
CPT/HCPCS: 81003; Z7502; 99282

== ENCOUNTER 2019-09-23 04:35 | Emergency (ER) | payer OTHER ==
[~2019-09-23] VITALS: Ht 170.2 cm; Wt 68.0 kg
[~2019-09-23 04:35] MED LIST: FLOMAX0.4 MG ORAL; NITROFURANTOIN100 M2 ORAL
[2019-09-23 04:38] VITALS: BP 166/91
--- NOTE | 2019-09-23 04:51 | Emergency Room Report ---
History of Present Illness General Chief Complaint: Male Urogenital Problems Present Illness HPI Disclaimer: Please note that this report is being documented using [employer] technology. This can lead to erroneous entry secondary to incorrect interpretation by the dictating instrument. HPI: 58-year-old male history of BPH presented for urinary retention. He states he has had urinary retention for the past 2 days. Now complains of 10 out of 10 severe lower abdominal pain with the inability to urinate. He denies any fevers nausea or vomiting. He has required Em catheters in the past. 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 Patient History Reviewed Nursing Documentation: PMH: Agreed; PSxH: Agreed Nursing Documentation-PMH Hx Cardiac Problems: No Hx Diabetes: Yes Hx Cancer: No Hx Gastrointestinal Problems: No - enlarged prostate Hx Neurological Problems: No Review of Systems All Other Systems: negative except mentioned in HPI Physical Exam Vital Signs Date Time Temp Pulse Resp B/P (MAP) Pulse Ox O2 Delivery O2 Flow Rate FiO2 09/23/19 04:35 97.9 120 20 166/91 (116) 99 Room Air Sp02 EP Interpretation: reviewed, normal General Appearance: well appearing, mild distress Head: normocephalic, atraumatic Eyes: bilateral eye PERRL, bilateral eye EOMI ENT: hearing grossly normal, moist mucus membranes Neck: full range of motion, supple Respiratory: lungs clear, normal breath sounds, no rhonchi, no respiratory distress, no retraction, no wheezing Cardiovascular #1: normal peripheral pulses, no murmur, tachycardia Gastrointestinal: soft, non-distended, no guarding, other - Suprapubic tenderness noted Neurologic: alert, oriented x3, no focal defects Skin: normal color, warm/dry Medical Decision Making Diagnostic Impression: Primary Impression: Urinary retention ER Course 58-year-old male presents for urinary retention. He has a history of BPH. A Em catheter was placed with a large volume of urine output. Urinalysis was sent and showed no leukocytes or nitrites. Patient felt improved on my reassessment no medical complaints. He states he has been compliant with his diabetic medications. Patient did not wish to stay in the hospital for admission. Will be discharged home with outpatient follow-up for Em removal. He does have follow-up with his primary care doctor in approximately 1 week. I did recommend discussion for referral to urology. Return precautions were given. Laboratory Tests Test 09/23/19 04:50 Urine Color Pale yellow Urine Appearance Clear Urine pH 6 (4.5-8.0) Urine Specific [place] 1.010 (1.005-1.035) Urine Protein Negative (NEGATIVE) Urine Glucose (UA) 4+ (NEGATIVE) H Urine Ketones 3+ (NEGATIVE) H Urine Blood Negative (NEGATIVE) Urine Nitrite Negative (NEGATIVE) Urine Bilirubin Negative (NEGATIVE) Urine Urobilinogen Normal MG/DL (0.0-1.0) Urine Leukocyte Esterase Negative (NEGATIVE) Last Vital Signs Date Time Temp Pulse Resp B/P (MAP) Pulse Ox O2 Delivery O2 Flow Rate FiO2 09/23/19 04:35 97.9 120 20 166/91 (116) 99 Room Air Status: improved Disposition: HOME, SELF-CARE Condition: Improved Naveed Andersen M.D. Sep 23, 2019 04:51
[2019-09-23 05:15] LABS: APPEARANCE,URINE CLEAR; BILIRUBIN, URINE NEGATIVE (NEGATIVE); COLOR,URINE PALE YELLOW; GLUCOSE, URINE (UA) 4+ (NEGATIVE); KETONES,URINE 3+ (NEGATIVE); LEUKOCYTE ESTERASE ,URINE NEGATIVE (NEGATIVE); NITRITE,URINE NEGATIVE (NEGATIVE); PH,URINE 6 (4.5-8.0); PROTEIN,URINE NEGATIVE (NEGATIVE); UROBILINOGEN,URINE NORMAL MG/DL (0.0-1.0)
[2019-09-23 05:30] VITALS: BP 119/82
[2019-09-23 05:40] VITALS: BP 115/73
== END 2019-09-23 05:40 | disposition home or self-care (01) ==
LOC: EDBD 04:35 → EMR 05:00
DX: R33.9 Retention of urine, unspecified (principal); E11.9 Type 2 diabetes mellitus without complications; R10.30 Lower abdominal pain, unspecified
CPT/HCPCS: 51702; 81003; Z7502; 99284

== ENCOUNTER 2019-10-10 15:43 | Inpatient (IN) | payer OTHER ==
[~2019-10-10] VITALS: Ht 170.2 cm; Wt 72.6 kg
[~2019-10-10 15:43] MED LIST changes: -ACTOS45 MG ORAL; -ATORVASTATIN CA40 MG ORAL; -Insulin Human Regular 100units/ml 3ml SUBQ ONE; -LOSARTAN POTASS25 MG ORAL; -METFORMIN HCL850 M1 ORAL; -NAPROXEN250 M1 PO; -PROSCAR5 MG ORAL
[2019-10-10 15:48] VITALS: BP 126/84
--- NOTE | 2019-10-10 15:48 | NUR ---
ED Nurse Note: Pt KATRINA PELLETIER from home c/o high blood sugar and urinary retention and. Pt was seen here this AM for polyuria. Pt has FC is in place. BS at the scene says HIGH. Denies pain at this time. AAOx4, verbally responsive. No SOB, on room air. Pt placed on cardiac surgeon. Addendum: 10/10/19 at 1621 by JOSLYN ED Nurse Note: Pt reports his PCP called and informed him that his BS was 900 and was told to go to the ER.
--- NOTE | 2019-10-10 16:00 | NUR ---
ED Nurse Note: IV line established. Blood and urine speciemn collected and sent to lab.
[2019-10-10 16:07] LABS: BASOPHILS % (AUTO) 1.5 % (0.0-2.0); EOSINOPHILS % (AUTO) 2.7 % (0.0-3.0); HEMATOCRIT 43.1 % (42.0-52.0); HEMOGLOBIN 14.8 G/DL (14.2-18.0); LYMPHOCYTES % (AUTO) 25.9 % (20.0-45.0); MEAN CORPUSCULAR VOLUME 91 FL (80-99); MONOCYTES % (AUTO) 10.8 % (1.0-10.0); PLATELET COUNT 226 K/UL (150-450); RED BLOOD COUNT 4.71 M/UL (4.70-6.10); RED CELL DISTRIBUTION WIDTH 12.5 % (11.6-14.8); WHITE BLOOD COUNT 6.3 K/UL (4.8-10.8)
[2019-10-10 16:23] LABS: ALANINE AMINOTRANSFERASE 27 U/L (12-78); ALBUMIN 3.7 G/DL (3.4-5.0); ALBUMIN/GLOBULIN RATIO 1.2 (1.0-2.7); ALKALINE PHOSPHATASE 82 U/L (46-116); ANION GAP 10 mmol/L (5-15); ASPARTATE AMINO TRANSFERASE 12 U/L (15-37); BILIRUBIN,TOTAL 0.4 MG/DL (0.2-1.0); BLOOD UREA NITROGEN 14 mg/dL (7-18); CALCIUM 9.5 MG/DL (8.5-10.1); CARBON DIOXIDE 25 MMOL/L (21-32); CHLORIDE 96 MMOL/L (98-107); CREATININE 1.3 MG/DL (0.55-1.30); POTASSIUM 4.1 MMOL/L (3.5-5.1); SODIUM 131 MMOL/L (136-145)
[2019-10-10 16:46] LABS: APPEARANCE,URINE CLEAR; BILIRUBIN, URINE NEGATIVE (NEGATIVE); COLOR,URINE PALE YELLOW; GLUCOSE, URINE (UA) 4+ (NEGATIVE); KETONES,URINE 1+ (NEGATIVE); LEUKOCYTE ESTERASE ,URINE NEGATIVE (NEGATIVE); NITRITE,URINE NEGATIVE (NEGATIVE); PH,URINE 5 (4.5-8.0); PROTEIN,URINE NEGATIVE (NEGATIVE); UROBILINOGEN,URINE NORMAL MG/DL (0.0-1.0)
[2019-10-10] MEDS ORDERED: ATORVASTATIN CA40 MG ORAL (17:17)
[2019-10-10] MEDS ORDERED: PROSCAR5 MG ORAL (17:18)
[2019-10-10] MEDS ORDERED: NAPROXEN250 M1 PO (17:20)
[2019-10-10] MEDS ORDERED: LOSARTAN POTASS25 MG ORAL (17:20)
[2019-10-10] MEDS ORDERED: ACTOS45 MG ORAL (17:20)
[2019-10-10] MEDS ORDERED: METFORMIN HCL850 M1 ORAL (17:20)
--- NOTE | 2019-10-10 17:53 | Emergency Room Report ---
History of Present Illness General Chief Complaint: Abnormal Labs Source: Patient Present Illness HPI 58-year-old male with PMHx insulin-dependent diabetes sent from his primary care doctor office for abnormal results. Patient had a blood draw 2 days ago. He was called at home today and told that he has a blood sugar level greater than 900. Patient states he has been compliant with his insulin (Levemir 18 units nightly ) but not has not changed it in several months. Of note, patient was seen in the emergency department recently for urinary retention and discharged with a Em. He also endorses nausea but denies chest pain, vomiting, diarrhea, fever, cough , hemoptysis or weakness Denies back pain, saddle anesthesia, history of IV drug use or trauma The patient's symptoms were gradual onset, severity was moderate, duration since 2 days. Quality: Polydipsia Past medical history: Insulin-dependent diabetes Past surgical history: Denies Smoking: Denies Alcohol use: Denies Drug use: Denies Review of systems: CONST: No fevers or chills, No night sweats PULMONARY: No productive cough, No shortness of breath CARDIAC: No chest pain, No palpitations GI: No vomiting, No diarrhea , No melena_or_BRBPR : No dysuria, No hematuria, No discharge NEURO: No new_focal_weakness_or_numbness, No confusion, No vision changes 14 point Review of Systems is otherwise negative except per HPI Physical Exam: GENERAL: Awake_alert_ nontoxic, no acute distress Spo2 99% on RA -normal EYES: Extraocular muscles are intact. Conjunctivae clear. Lids without swelling ENT: External nose and ear normal_in_appearance. Oropharynx clear. Head_ atraumatic, Moist_oral_mucosa NECK: No JVD. No meningismus. No thyromegaly. Supple. Trachea midline RESP: Normal respiratory effort. Symmetric rise. No stridor. Clear_to_ auscultation_No_rales_No_wheezes CARDIAC: Regular rate and regular rhythm on_auscultation No_significant pedal edema. ABDOMEN: Soft. Nondistended. Nontender_No_rebound_or_guarding. Chronic indwelling Em MSK: Normal muscle tone, without rigidity. Extremities without asymmetric deformity or swelling. SKIN: Warm and dry. No visible cyanosis or pallor NEUROLOGIC: Alert, oriented x3. Motor_and_sensation_grossly_intact. No truncal ataxia. Gait_normal Psych: Normal mood and affect, normal judgment and insight - COORDINATION OF CARE Case was discussed with: Patient , Patient's Physician Any labs and imaging that were ordered were interpreted as part of the medical decision making: Medical Decision Making/Plan: Differential diagnosis includes DKA/HHS, UTI, dehydration, hypovolemia, electrolyte derangement such as hyponatremia / hypoglycemia, neuromuscular junction disorder such as myasthenia gravis, GI bleed, anemia, UTI, among others. Initial vital signs are unremarkable. Accu-Chek is read as "high". Physical examination is otherwise unremarkable. He had positive chronic indwelling Em draining straw-colored urine. No gross hematuria noted. Abdominal examination was nontender and non-peritoneal. Labs show critical hyperglycemia, consistent with HHS. No evidence of DKA. pH is 7.3. Serum osmolality is 325. Bicarb is 25. Anion gap is 10. Patient was aggressively fluid resuscitated. He received normal saline 3 L IV in the ED followed by regular insulin 10 units IV. Repeat Accu-Chek demonstrated downtrending blood glucose level. Repeat BMP is pending There is no indication for insulin drip at this time. Patient is a suitable candidate for telemetry. The patient feels generally weak but has no focal neurologic deficits, abnormal muscle tone, hypo/hyperreflexia, or fatigability. No evidence of stroke, spinal cord emergency, neuromuscular junction disorder, or multiple sclerosis at this time. The patient appears well hydrated and has normal vitals, no evidence of significant dehydration / hypovolemia at this time. I spoke with Dr. Tafoya, and reviewed the patients presentation, workup, results , and treatment. They will admit the patient for further care and evaluation, and assume care of the patient at this time. 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 Time is exclusive of separately billable procedures. Time includes: direct patient care, continuous monitoring and multiple patient reassessment, coordination of patient care, review of patient's medical records , medical consultation, family consultation regarding treatment decisions and documentation of patient care. Medical Decision Making Diagnostic Impression: Primary Impression: Hyperglycemic coma with insulin-dependent diabetes mellitus Additional Impression: Diabetes EKG Diagnostic Results ROSIE Scribe Text 12-lead EKG (interpreted by me) Time: 1635 Indication: Rhythm analysis Tracing visualized and Interpreted by me. Rhythm: Normal sinus rhythm Rate: 86 bpm QTc: 433 Morphology: No_significant_ST_elevations_or_depressions, No STEMI Impression: NSR, non specific ST changes nl axis Rhythm Strip Diag. Results Rhythm Strip Time: 18:05 EP Interpretation: yes Rate: 86 Rhythm: NSR, no PVC's, no ectopy Other Impression NSR Reevaluation Time: 18:05 Last Vital Signs Date Time Temp Pulse Resp B/P (MAP) Pulse Ox O2 Delivery O2 Flow Rate FiO2 10/10/19 15:48 97.5 100 18 126/84 98 Room Air Status: improved Disposition: ADMITTED INPATIENT Admit Decision Time: 18:00 Condition: Stable Referrals: NON PHYSICIAN (PCP) Geraldine Rahman D.O. Oct 10, 2019 17:52
[2019-10-10] MEDS ORDERED: Insulin Human Regular 100units/ml 3ml IV ONE (18:00)
[2019-10-10 18:32] VITALS: BP 132/83
--- NOTE | 2019-10-10 18:38 | NUR ---
ED Nurse Note: Repeat BMP sent to lab.
--- NOTE | 2019-10-10 19:25 | NUR ---
ED Nurse Note: Dr. Rehman at bedside.
[2019-10-10 19:44] LABS: ANION GAP 7 mmol/L (5-15); BLOOD UREA NITROGEN 13 mg/dL (7-18); CALCIUM 9.4 MG/DL (8.5-10.1); CARBON DIOXIDE 27 MMOL/L (21-32); CHLORIDE 105 MMOL/L (98-107); CREATININE 1.2 MG/DL (0.55-1.30); POTASSIUM 3.5 MMOL/L (3.5-5.1); SODIUM 139 MMOL/L (136-145)
[2019-10-10 19:57] VITALS: BP 115/74
--- NOTE | 2019-10-10 20:35 | NUR ---
ED Nurse Note: Report given to Lorelei CEVALLOS.
--- NOTE | 2019-10-10 20:45 | NUR ---
TRANSFER TO FLOOR: Patient transferred to Tele. Report given to Lorelei CEVALLOS. Pt AAOX4, verbally responsive. No SOB, on room air. IV line on right forearm 20g and left forearm 18g patent and intact. No skin issues. Med recon done. All belongings sent with the patient.
--- NOTE | 2019-10-10 20:55 | NUR ---
NURSE NOTES: Patient received from Virgie CEVALLOS from ER via [facility]. Patient is in stable condition. No s/s of pain or acute distress. Complained of hungriness. Offered sandwich as soon as diet order received. Alert and oriented x4. Oriented to room and call light. Bed in lowest position and locked. IV site on Left FA 18G and Right FA 20G patent and intact. Accu check 297. Vital signs stable. MD notified and received orders. Orders verified and carried out. Will continue plan of care.
[2019-10-10] MEDS ORDERED: NovoLOG Insulin Flexpen SUBQ SCH (21:00)
[2019-10-10] MEDS ORDERED: Levemir Flexpen SUBQ SCH ×2 (21:00→22:00)
[2019-10-10] MEDS: NovoLOG Insulin Flexpen SUBQ SCH (22:18)
[2019-10-11] VITALS (7 sets, daily range): BP systolic 105–124; BP diastolic 68–80
--- NOTE | 2019-10-11 06:30 | NUR ---
NURSE NOTES: Endocrine doctor called to change levemir from 10U q12 to 20u q12 and add Novolog 10U TID AC. Orders received, verified and carried out.
[2019-10-11] MEDS: NovoLOG Insulin Flexpen SUBQ SCH ×3 (06:36→20:09)
[2019-10-11] MEDS ORDERED: NovoLOG Insulin Flexpen SUBQ SCH ×2 (07:00→16:30)
--- NOTE | 2019-10-11 07:44 | NUR ---
HAND-OFF: Report given to Dionne CEVALLOS. Patient in stable condition. Endorsed plan of care.
--- NOTE | 2019-10-11 08:05 | NUR ---
NURSE NOTES: Received report from BAN Moseley. Pt awake, A/O x4, denies any pain, no s/sx of acute distress, breathing even and unlabored in RA. IV sites patent and asymptomatic, running IVF as ordered. Bed on lowest position, call light within reach. Will continue plan of care.
[2019-10-11 08:26] LABS: BASOPHILS % (AUTO) 1.2 % (0.0-2.0); EOSINOPHILS % (AUTO) 3.9 % (0.0-3.0); HEMATOCRIT 45.3 % (42.0-52.0); HEMOGLOBIN 14.9 G/DL (14.2-18.0); LYMPHOCYTES % (AUTO) 28.2 % (20.0-45.0); MEAN CORPUSCULAR VOLUME 93 FL (80-99); MONOCYTES % (AUTO) 10.5 % (1.0-10.0); NEUTROPHILS % (AUTO) 56.3 % (45.0-75.0); PLATELET COUNT 226 K/UL (150-450); RED CELL DISTRIBUTION WIDTH 12.3 % (11.6-14.8); WHITE BLOOD COUNT 6.7 K/UL (4.8-10.8)
[2019-10-11 08:41] LABS: ANION GAP 5 mmol/L (5-15); BLOOD UREA NITROGEN 9 mg/dL (7-18); CALCIUM 8.9 MG/DL (8.5-10.1); CARBON DIOXIDE 31 MMOL/L (21-32); CHLORIDE 108 MMOL/L (98-107); CREATININE 1.1 MG/DL (0.55-1.30); POTASSIUM 3.9 MMOL/L (3.5-5.1); SODIUM 144 MMOL/L (136-145)
[2019-10-11 09:00] LABS: ALANINE AMINOTRANSFERASE 42 U/L (12-78); ALBUMIN 3.1 G/DL (3.4-5.0); ALKALINE PHOSPHATASE 62 U/L (46-116); ASPARTATE AMINO TRANSFERASE 25 U/L (15-37); BILIRUBIN,DIRECT 0.2 MG/DL (0.0-0.3); BILIRUBIN,TOTAL 0.7 MG/DL (0.2-1.0); CHOLESTEROL 193 MG/DL (< 200); GAMMA GLUTAMYL TRANSPEPTIDASE 48 U/L (5-85); HDL CHOLESTEROL 62 MG/DL (40-60); PHOSPHORUS 2.6 MG/DL (2.5-4.9); TRIGLYCERIDES 92 MG/DL (30-150)
[2019-10-11] MEDS ORDERED: Levemir Flexpen SUBQ SCH ×2 (09:00→21:00)
--- NOTE | 2019-10-11 11:14 | Consultation ---
Consult Note Consult Note I am asked to evaluate the patient at the request of Dr. Norman Cage for fluid and electrolyte management 58-year-old male with PMHx insulin-dependent diabetes sent from his primary care doctor office for abnormal results. Patient had a blood draw 2 days ago. He was called at home today and told that he has a blood sugar level greater than 900. Patient states he has been compliant with his insulin (Levemir 18 units nightly ) but not has not changed it in several months. Of note, patient was seen in the emergency department recently for urinary retention and discharged with a Em. He also endorses nausea but denies chest pain, vomiting, diarrhea, fever, cough , hemoptysis or weakness Denies back pain, saddle anesthesia, history of IV drug use or trauma The patient's symptoms were gradual onset, severity was moderate, duration since 2 days. Quality: Polydipsia Past medical history: Insulin-dependent diabetes Past surgical history: Denies Smoking: Denies Alcohol use: Denies Drug use: Denies COVID-19 Screening Contact w/high risk pt: No Recent Travel to affected area: No Experienced COVID-19 symptoms?: No COVID-19 Testing performed WOMEN'S MINISTRY DIRECTOR: No Hx Cardiac Problems: No Hx Diabetes: Yes Hx Cancer: No Hx Gastrointestinal Problems: No - enlarged prostate Hx Neurological Problems: No PHYSICAL EXAMINATION: GENERAL: Calm in bed, oriented x3, no acute distress. VITAL SIGNS: Temperature 97 degrees, pulse 80, respirations 18, blood pressure 105/70. CARDIOVASCULAR: No murmur. LUNGS: Distant. ABDOMEN: Bowel sound positive. Nontender. Nondistended. EXTREMITIES: No cyanosis, clubbing, or edema. NEUROLOGIC: The patient moves all extremities, slightly weak. LABORATORY DATA: Labs at this time show CBC is normal. BMP show glucose yesterday down to 424. Today, chloride 108, glucose is down to 127, uric acid 2.5. Magnesium 1.7. Albumin 3.1. Urinalysis show 4+ glucose, 1+ ketone, 1+ blood, acetone negative. Assessment/Plan This 58-year-old male presents to emergency room with blood sugar over 750 mg/dL Initial low serum sodium of 131 was due to hypoglycemia which is now resolved Today blood sugar is improved, serum magnesium low Plan: Continue to adjust blood sugar per Endo We will monitor electrolytes Magnesium supplement given Per orders Mitch Domínguez MD Oct 11, 2019 11:14
--- NOTE | 2019-10-11 12:58 | NUR ---
NURSE NOTES: Insulin sliding scale was adjusted. Novolog due at 1130 does not show up on EMAR, but med is due. Insulin administered as ordered, though when insulin pen is scanned, it shows that medication is not due until 1630. Notes added when medication was administered. Called Pharmacy, spoke with Alfonso, to see if he can correct the EMAR order. Per Alfonso, just continue to administer as scheduled, though it will still show as unscheduled dose in EMAR and it should be corrected after that.
[2019-10-11] MEDS ORDERED: Magnesium Oxide 400mg tab ORAL SCH (13:00)
--- NOTE | 2019-10-11 14:30 | History and Physical Report ---
DATE OF ADMISSION: 10/10/2019 DATE AND TIME SEEN: 10/11/2019 at 9 a.m. CONSULTANTS: 1. . 2. Mitch Domínguez MD. CHIEF COMPLAINT: Hyperglycemia. BRIEF HISTORY: This is a 58-year-old male, who lives at home, was at doctor's office. Accu-Chek came back greater than 900. The patient was told to come to [facility], diagnosed with the above, went down to 718, admitted to medical floor. Currently, calm in bed. No complaint. No chest pain. No shortness of breath. No nausea, vomiting, or diarrhea. PAST MEDICAL HISTORY: Diabetes. PAST SURGICAL HISTORY: None. ALLERGIES: Denies. MEDICATIONS: Include detemir, aspart, Zofran, IV fluid, insulin. SOCIAL HISTORY: Positive smoking. No alcohol. No intravenous drug abuse. FAMILY HISTORY: Noncontributory. PHYSICAL EXAMINATION: GENERAL: Calm in bed, oriented x3, no acute distress. VITAL SIGNS: Temperature 97 degrees, pulse 80, respirations 18, blood pressure 105/70. CARDIOVASCULAR: No murmur. LUNGS: Distant. ABDOMEN: Bowel sound positive. Nontender. Nondistended. EXTREMITIES: No cyanosis, clubbing, or edema. NEUROLOGIC: The patient moves all extremities, slightly weak. LABORATORY DATA: Labs at this time show CBC is normal. BMP show glucose yesterday down to 424. Today, chloride 108, glucose is down to 127, uric acid 2.5. Magnesium 1.7. Albumin 3.1. Urinalysis show 4+ glucose, 1+ ketone, 1+ blood, acetone negative. ASSESSMENT: 1. Diabetes. 2. Hyperglycemia. 3. Malnutrition. PLAN: 1. Blood sugar control. 2. Dietary followup. 3. CBC and BMP in the morning. 4. Discharge plan cleared by team. Norman Tafoya D.O. DR: XAVIER JOB#: [id number] CC:
--- NOTE | 2019-10-11 14:55 | NUR ---
NURSE NOTES: Received patient into room 302 bed 2,patient alert and orientedx4 respirations unlabored.IV fluids infusing as ordered.patient has his personal belongings as well as his cell phone.call light within reach.
--- NOTE | 2019-10-11 15:00 | NUR ---
HAND-OFF: Report given to BAN Johnson. Pt in stable condition, endorsed plan of care. Belongings checked. Insulin pens transferred with pt. Tele monitor removed.
[2019-10-11] MEDS: Magnesium Oxide 400mg tab ORAL SCH (17:10)
--- NOTE | 2019-10-11 18:48 | NUR ---
NURSE NOTES: Patient resting ,bower catheter draining clear yellow urine.Call light within reach.
--- NOTE | 2019-10-11 19:29 | NUR ---
HAND-OFF: Report given to Mavis CEVALLOS.
[2019-10-11] MEDS: Levemir Flexpen SUBQ SCH (20:08)
[2019-10-12 04:00] VITALS: BP 106/63
[2019-10-12 05:40] LABS: BASOPHILS % (AUTO) 1.4 % (0.0-2.0); EOSINOPHILS % (AUTO) 3.4 % (0.0-3.0); HEMATOCRIT 44.5 % (42.0-52.0); HEMOGLOBIN 14.9 G/DL (14.2-18.0); LYMPHOCYTES % (AUTO) 27.5 % (20.0-45.0); MEAN CORPUSCULAR VOLUME 91 FL (80-99); MONOCYTES % (AUTO) 9.3 % (1.0-10.0); NEUTROPHILS % (AUTO) 58.4 % (45.0-75.0); PLATELET COUNT 210 K/UL (150-450); RED BLOOD COUNT 4.88 M/UL (4.70-6.10); RED CELL DISTRIBUTION WIDTH 11.9 % (11.6-14.8); WHITE BLOOD COUNT 6.6 K/UL (4.8-10.8)
[2019-10-12 05:45] LABS: ANION GAP 4 mmol/L (5-15); BLOOD UREA NITROGEN 10 mg/dL (7-18); CALCIUM 9.3 MG/DL (8.5-10.1); CARBON DIOXIDE 30 MMOL/L (21-32); CHLORIDE 106 MMOL/L (98-107); CREATININE 1.1 MG/DL (0.55-1.30); POTASSIUM 4.4 MMOL/L (3.5-5.1); SODIUM 140 MMOL/L (136-145)
[2019-10-12] MEDS: NovoLOG Insulin Flexpen SUBQ SCH ×4 (05:48→20:16)
--- NOTE | 2019-10-12 06:32 | NUR ---
NURSE HAND-OFF: Important Events on Shift: Blood glucose levels trending down, was 99 at 0600, no s/s of hypoglycemia; Diabetic education regarding diet done Patient Status: stable Diet: consistent carb Pending Orders: none Pending Results/Labs:today's labs Pending MD notification:[ Dr. Rehman suggested that a Urologist come and see patient prior to discharge] Latest Vital Signs: Temperature 97.4 , Pulse 70 , B/P 106 /63 , Respiratory Rate 18 , O2 SAT 98 , Room Air, O2 Flow Rate . Vital Sign Comment: [stable; afebrile] Latest Valdes Fall Score: 20 Fall Risk: Low Risk Safety Measures: Call light Within Reach, Bed Alarm Zone 1, Side Rails Side Rails x2, Bed position Low and Locked. Fall Precautions: Door Sign Patient Fall Education Report given to [Cullen Jordan].
--- NOTE | 2019-10-12 07:30 | NUR ---
NURSE NOTES: Patient sitting in bed eating breakfast. No complain of pain or distress at this time. IV dressing intact and dry. Em catheter patent and draining well. Bed lowest position. Call light within reach. Will continue to monitor.
[2019-10-12 08:00] VITALS: BP 102/64
[2019-10-12] MEDS: Magnesium Oxide 400mg tab ORAL SCH ×3 (08:42→17:14)
[2019-10-12] MEDS: Levemir Flexpen SUBQ SCH ×2 (08:46→20:15)
--- NOTE | 2019-10-12 08:47 | General Progress Note ---
Assessment/Plan Problem List: (1) Diabetes ICD Codes: E11.9 - Type 2 diabetes mellitus without complications SNOMED: 35863060, 79673149, 904906996, 856684150 (2) Hyperglycemic hyperosmolar nonketotic coma ICD Codes: E11.01 - Type 2 diabetes mellitus with hyperosmolarity with coma SNOMED: 57014286, 413285441 Status: stable, progressing Assessment/Plan: diet bs control cbc bmp am neuro eval Subjective Constitutional: Reports: weakness Allergies: Coded Allergies: No Known Allergies (Unverified , 07/25/19) All Systems: reviewed and negative except above Subjective sleepy calm Objective Last 24 Hour Vital Signs Date Time Temp Pulse Resp B/P (MAP) Pulse Ox O2 Delivery O2 Flow Rate FiO2 10/12/19 08:00 98.0 81 16 102/64 (77) 95 10/12/19 04:00 97.4 70 18 106/63 (77) 98 10/11/19 23:44 97.9 71 16 122/80 (94) 96 10/11/19 21:00 Room Air 10/11/19 20:00 98.3 79 17 124/77 (93) 96 10/11/19 16:00 98.0 59 18 120/68 (85) 97 10/11/19 12:00 97.2 69 20 112/68 (83) 97 10/11/19 12:00 70 10/11/19 09:00 Room Air Intake and Output 10/11/19 10/12/19 19:00 07:00 Intake Total 920 ml 600 ml Output Total 2300 ml 1200 ml Balance -1380 ml -600 ml Intake Oral 720 ml 300 ml IV Total 200 ml 300 ml Output Urine Total 2300 ml 1200 ml Laboratory Tests 10/11/19 16:43: POC Whole Blood Glucose 299H 10/11/19 20:04: POC Whole Blood Glucose [Pending] 10/12/19 04:50: White Blood Count 6.6, Red Blood Count 4.88, Hemoglobin 14.9, Hematocrit 44.5, Mean Corpuscular Volume 91, Mean Corpuscular Hemoglobin 30.6, Mean Corpuscular Hemoglobin Concent 33.6, Red Cell Distribution Width 11.9, Platelet Count 210, Mean Platelet Volume 6.8, Neutrophils (%) (Auto) 58.4, Lymphocytes (%) (Auto) 27.5, Monocytes (%) (Auto) 9.3, Eosinophils (%) (Auto) 3.4H, Basophils (%) (Auto ) 1.4, Sodium Level 140, Potassium Level 4.4, Chloride Level 106, Carbon Dioxide Level 30, Anion Gap 4L, Blood Urea Nitrogen 10, Creatinine 1.1, Estimat Glomerular Filtration Rate > 60, Glucose Level 86, Calcium Level 9.3 Height (Feet): 5 Height (Inches): 7.00 Weight (Pounds): 160 General Appearance: lethargic EENT: normal ENT inspection Neck: normal alignment Cardiovascular: normal peripheral pulses, normal rate, regular rhythm Respiratory/Chest: chest wall non-tender, lungs clear, normal breath sounds Abdomen: normal bowel sounds, non tender, soft Extremities: normal inspection Edema: no edema noted Arm (L), no edema noted Arm (R), no edema noted Leg (L), no edema noted Leg (R), no edema noted Pedal (L), no edema noted Pedal (R), no edema noted Generalized Neurologic: motor weakness Skin: normal pigmentation, warm/dry Norman Tafoya Oct 12, 2019 08:47
[2019-10-12 12:00] VITALS: BP 114/78
--- NOTE | 2019-10-12 12:12 | NUR ---
CASE MANAGEMENT: INITIAL REVIEW 58YR OLD MALE BIBA FROM HOME CC:ABNORMAL LABS; URINE RETENTION; HIGH BLOOD GLU 718 SI:HYPERGLYCEMIA COMA WITH INSULIN DEPENDENT DM 97.6 100 18 126/84 98% ON RA BG 718 OSMOLALITY 325 LACTIC ACID 2.70 NA+ 131 ABG: pH 7.336 \: 3E MED SURG UNIT DCP: HOME WHEN STABLE CASE MANAGEMENT:REVIEW 10/11/19 SI:HYPERGLYCEMIA COMA WITH INSULIN DEPENDENT DM 98.0 81 16 102/64 95% ON RA BG 299 HA1C 12.3 URIC ACID 2.5 MG 1.7 IS:IVF NS BOLS X3 MAG-OX PO TID NOVOLOG SQ AC+HS \: 3E MED SURG UNIT DCP: HOME WHEN STABLE CASE MANAGEMENT:REVIEW 10/12/19 SI:HYPERGLYCEMIA COMA WITH INSULIN DEPENDENT DM 98.0 81 16 102/64 95% ON RA BUN 4 IS:LEVEMIR SQ BID MAG-OX PO TID NOVOLOG SQ AC+HS \: 3E MED SURG UNIT DCP: HOME WHEN STABLE
--- NOTE | 2019-10-12 12:33 | NUR ---
*-* INSURANCE *-* UPDATED CLINICALS AND REVIEWS HAVE BEEN FAXED TO: [facility]#[id number] - APPROVED IP ADMISSION 10/10/2019 - 10/11/2019 #[phone] FAX#[phone] REVIEWS/CLINICALS
--- NOTE | 2019-10-12 12:35 | Nephrology Progress Note ---
Assessment/Plan Problem List: (1) Electrolyte imbalance (2) Diabetes (3) Hyperglycemic hyperosmolar nonketotic coma Assessment This 58-year-old male presents to emergency room with blood sugar over 750 mg/dL Initial low serum sodium of 131 was due to hypoglycemia which is now resolved blood sugar is improved, serum magnesium low Plan Continue per current management. We will monitor electrolytes and chemistries. Subjective ROS Limited/Unobtainable: No Objective Objective Last 24 Hour Vital Signs Date Time Temp Pulse Resp B/P (MAP) Pulse Ox O2 Delivery O2 Flow Rate FiO2 10/12/19 12:00 97.3 77 16 114/78 (90) 97 10/12/19 09:00 Room Air 10/12/19 08:00 98.0 81 16 102/64 (77) 95 10/12/19 04:00 97.4 70 18 106/63 (77) 98 10/11/19 23:44 97.9 71 16 122/80 (94) 96 10/11/19 21:00 Room Air 10/11/19 20:00 98.3 79 17 124/77 (93) 96 10/11/19 16:00 98.0 59 18 120/68 (85) 97 Intake and Output 10/11/19 10/12/19 19:00 07:00 Intake Total 920 ml 600 ml Output Total 2300 ml 1200 ml Balance -1380 ml -600 ml Intake Oral 720 ml 300 ml IV Total 200 ml 300 ml Output Urine Total 2300 ml 1200 ml Laboratory Tests 10/11/19 16:43: POC Whole Blood Glucose 299H 10/11/19 20:04: POC Whole Blood Glucose [Pending] 10/12/19 04:50: White Blood Count 6.6, Red Blood Count 4.88, Hemoglobin 14.9, Hematocrit 44.5, Mean Corpuscular Volume 91, Mean Corpuscular Hemoglobin 30.6, Mean Corpuscular Hemoglobin Concent 33.6, Red Cell Distribution Width 11.9, Platelet Count 210, Mean Platelet Volume 6.8, Neutrophils (%) (Auto) 58.4, Lymphocytes (%) (Auto) 27.5, Monocytes (%) (Auto) 9.3, Eosinophils (%) (Auto) 3.4H, Basophils (%) (Auto ) 1.4, Sodium Level 140, Potassium Level 4.4, Chloride Level 106, Carbon Dioxide Level 30, Anion Gap 4L, Blood Urea Nitrogen 10, Creatinine 1.1, Estimat Glomerular Filtration Rate > 60, Glucose Level 86, Calcium Level 9.3 10/12/19 05:47: POC Whole Blood Glucose [Pending] 10/12/19 08:40: POC Whole Blood Glucose [Pending] 10/12/19 12:04: POC Whole Blood Glucose [Pending] Height (Feet): 5 Height (Inches): 7.00 Weight (Pounds): 160 General Appearance: no apparent distress Objective No change Mitch Domínguez MD Oct 12, 2019 12:34
--- NOTE | 2019-10-12 12:49 | NUR ---
RD ASSESSMENT & RECOMMENDATIONS SEE CARE ACTIVITY FOR COMPLETE ASSESSMENT DAILY ESTIMATED NEEDS: Needs based on DM 75kg 23-28 kcals/kg 7981-5039 total kcals 1-1.5 g protein/kg 75-113 g total protein 25-30 mL/kg 3096-4738 total fluid mLs NUTRITION DIAGNOSIS: Altered nutrition related lab values r/t diabetes as evidenced by A1C 12.3, BG on adm 718. CURRENT DIET: [facility] PO DIET RECOMMENDATIONS: [facility] ADDITIONAL RECOMMENDATIONS: 1) Obtain a standing weight 2) Diet edu as able 3) Replete lytes, Mg low 1.7 4) BG now wnl (86), monitor hypoglycemic meds and continued good po intake -> No episode of hypoglycemia at this time -> Encourage pm snack
--- NOTE | 2019-10-12 13:48 | NUR ---
NURSE NOTES: Spoke to regarding patient and Em catheter. Per : contact for Em catheter. Order noted carried out. Left a massage to regarding new consult and patient.
[2019-10-12 16:00] VITALS: BP 119/76
--- NOTE | 2019-10-12 17:34 | NUR ---
NURSE NOTES: Seen and evaluated by and Cleared to discharge patient tomorrow Endocrinology standpoint. Per : Patient already have diabetes medications at home. So don't need discharge prescription. Order noted and carried out.
--- NOTE | 2019-10-12 19:03 | NUR ---
NURSE HAND-OFF: Important Events on Shift: Endocrinology cleared patient for discharge tomorrow. No need prescription. new consult Patient Status: Stable Diet: CCHO(M) Pending Orders: None Pending Results/Labs:CBC & BMP on 10/13/19 Pending MD notification: N/A Latest Vital Signs: Temperature 98.4 , Pulse 79 , B/P 119 /76 , Respiratory Rate 18 , O2 SAT 99 , Room Air, O2 Flow Rate . Vital Sign Comment: Stable Latest Valdes Fall Score: 35 Fall Risk: Medium Risk Safety Measures: Call light Within Reach, Bed Alarm Zone 1, Side Rails Side Rails x2, Bed position Low and Locked. Fall Precautions: Fall preventive measures applied Yellow Socks Yellow Gown Door Sign Patient Fall Education Report given to Mavis CEVALLOS. Patient in stable condition.
[2019-10-12 19:51] VITALS: BP 98/72
[2019-10-12 23:37] VITALS: BP 106/67
[2019-10-13 04:00] VITALS: BP 113/64
--- NOTE | 2019-10-13 05:28 | NUR ---
NURSE HAND-OFF: Important Events on Shift: Blood glucose trending towards more acceptable levels. otherwise no significant changes noted. had a shower; patient felt better; bower continues to be patent; good UOP. Patient Status: stabe Diet: consistent carb Pending Orders: AM labs Pending Results/Labs:none Pending MD notification: none Latest Vital Signs: Temperature 96.9 , Pulse 72 , B/P 113 /64 , Respiratory Rate 17 , O2 SAT 96 , Room Air, O2 Flow Rate . Vital Sign Comment: stable at this time Latest Valdes Fall Score: 20 Fall Risk: Low Risk Safety Measures: Call light Within Reach, Bed Alarm Zone 1, Side Rails Side Rails x2, Bed position Low and Locked. Fall Precautions: Door Sign Patient Fall Education Report given to . Addendum: 10/13/19 at 0648 by LEONOR UGARTE RN NURSE HAND-OFF: Fall Risk: Low Risk Safety Measures: Call light Within Reach, Bed Alarm Zone 1, Side Rails Side Rails x2, Bed position Low and Locked. Fall Precautions: in place Door Sign: in place Patient Fall Education: done; patient verbalized understanding Report will be given to Diogenes .
[2019-10-13] MEDS: NovoLOG Insulin Flexpen SUBQ SCH ×2 (06:03→12:00)
[2019-10-13 07:11] LABS: ANION GAP 5 mmol/L (5-15); BLOOD UREA NITROGEN 11 mg/dL (7-18); CALCIUM 8.8 MG/DL (8.5-10.1); CARBON DIOXIDE 29 MMOL/L (21-32); CHLORIDE 107 MMOL/L (98-107); POTASSIUM 3.7 MMOL/L (3.5-5.1); SODIUM 141 MMOL/L (136-145)
[2019-10-13 07:16] LABS: BASOPHILS % (AUTO) 0.9 % (0.0-2.0); EOSINOPHILS % (AUTO) 4.5 % (0.0-3.0); HEMATOCRIT 45.7 % (42.0-52.0); LYMPHOCYTES % (AUTO) 39.7 % (20.0-45.0); MEAN CORPUSCULAR VOLUME 92 FL (80-99); MONOCYTES % (AUTO) 10.7 % (1.0-10.0); NEUTROPHILS % (AUTO) 44.3 % (45.0-75.0); PLATELET COUNT 244 K/UL (150-450); RED BLOOD COUNT 4.97 M/UL (4.70-6.10); RED CELL DISTRIBUTION WIDTH 12.4 % (11.6-14.8)
[2019-10-13 08:00] VITALS: BP 122/61
--- NOTE | 2019-10-13 08:00 | NUR ---
NURSE NOTES: Received report from Mavis RN, pt a/a/o x4 laying in bed with no signs of distress or other issues at this time. IV on the right FA gauge #20 and Left FA gauge #18 heplock. bower cath in place for urinary retention. call light within reach, bed in lowest position, side rale sup x2. I will f/u as needed. - morning BS: 85 no insulin coverage needed.
[2019-10-13] MEDS: Levemir Flexpen SUBQ SCH (09:00)
[2019-10-13] MEDS: Magnesium Oxide 400mg tab ORAL SCH ×2 (09:32→12:12)
--- NOTE | 2019-10-13 09:36 | General Progress Note ---
Assessment/Plan Problem List: (1) Diabetes ICD Codes: E11.9 - Type 2 diabetes mellitus without complications SNOMED: 21942801, [id number], [id number], [id number] (2) Hyperglycemic hyperosmolar nonketotic coma ICD Codes: E11.01 - Type 2 diabetes mellitus with hyperosmolarity with coma SNOMED: 14038289, [id number] Status: stable, progressing Assessment/Plan: diet bs control dc if all clear Subjective Constitutional: Reports: weakness Allergies: Coded Allergies: No Known Allergies (Unverified , 07/25/19) All Systems: reviewed and negative except above Subjective sleepy calm Objective Last 24 Hour Vital Signs Date Time Temp Pulse Resp B/P (MAP) Pulse Ox O2 Delivery O2 Flow Rate FiO2 10/13/19 08:00 98.5 78 22 122/61 (81) 100 10/13/19 04:00 96.9 72 17 113/64 (80) 96 10/12/19 23:37 97.3 67 16 106/67 (80) 95 10/12/19 21:00 Room Air 10/12/19 19:51 99.1 78 17 98/72 (81) 94 10/12/19 16:00 98.4 79 18 119/76 (90) 99 10/12/19 12:00 97.3 77 16 114/78 (90) 97 Intake and Output 10/12/19 10/13/19 19:00 07:00 Intake Total 1180 ml 500 ml Output Total 1900 ml 1075 ml Balance -720 ml -575 ml Intake Oral 1180 ml 500 ml Output Urine Total 1900 ml 1075 ml Laboratory Tests 10/12/19 12:04: POC Whole Blood Glucose [Pending] 10/12/19 16:15: POC Whole Blood Glucose [Pending] 10/12/19 20:13: POC Whole Blood Glucose [Pending] 10/13/19 05:25: White Blood Count 7.0, Red Blood Count 4.97, Hemoglobin 15.0, Hematocrit 45.7, Mean Corpuscular Volume 92, Mean Corpuscular Hemoglobin 30.2, Mean Corpuscular Hemoglobin Concent 32.9, Red Cell Distribution Width 12.4, Platelet Count 244, Mean Platelet Volume 6.8, Neutrophils (%) (Auto) 44.3L, Lymphocytes (%) (Auto) 39.7, Monocytes (%) (Auto) 10.7H, Eosinophils (%) (Auto) 4.5H, Basophils (%) ( Auto) 0.9, Sodium Level 141, Potassium Level 3.7, Chloride Level 107, Carbon Dioxide Level 29, Anion Gap 5, Blood Urea Nitrogen 11, Creatinine 1.0, Estimat Glomerular Filtration Rate > 60, Glucose Level 72L, Calcium Level 8.8 10/13/19 06:01: POC Whole Blood Glucose 85 Height (Feet): 5 Height (Inches): 7.00 Weight (Pounds): 160 General Appearance: alert EENT: normal ENT inspection Neck: normal alignment Cardiovascular: normal peripheral pulses, normal rate, regular rhythm Respiratory/Chest: chest wall non-tender, lungs clear, normal breath sounds Abdomen: normal bowel sounds, non tender, soft Extremities: normal inspection Edema: no edema noted Arm (L), no edema noted Arm (R), no edema noted Leg (L), no edema noted Leg (R), no edema noted Pedal (L), no edema noted Pedal (R), no edema noted Generalized Neurologic: motor weakness Skin: normal pigmentation, warm/dry Norman Tafoya DO Oct 13, 2019 09:36
--- NOTE | 2019-10-13 10:09 | Nephrology Progress Note ---
Assessment/Plan Problem List: (1) Electrolyte imbalance (2) Diabetes (3) Hyperglycemic hyperosmolar nonketotic coma Assessment This 58-year-old male presents to emergency room with blood sugar over 750 mg/dL Initial low serum sodium of 131 was due to hypoglycemia which is now resolved blood sugar is improved, serum magnesium low Plan Stable from renal standpoint of view. MINGO Em. Urine for culture. 1 dose of Rocephin. Can follow-up as an outpatient after urine cultures available. Continue per current management. We will monitor electrolytes and chemistries while in-house Subjective ROS Limited/Unobtainable: No Objective Objective Last 24 Hour Vital Signs Date Time Temp Pulse Resp B/P (MAP) Pulse Ox O2 Delivery O2 Flow Rate FiO2 10/13/19 09:00 Room Air 10/13/19 08:00 98.5 78 22 122/61 (81) 100 10/13/19 04:00 96.9 72 17 113/64 (80) 96 10/12/19 23:37 97.3 67 16 106/67 (80) 95 10/12/19 21:00 Room Air 10/12/19 19:51 99.1 78 17 98/72 (81) 94 10/12/19 16:00 98.4 79 18 119/76 (90) 99 10/12/19 12:00 97.3 77 16 114/78 (90) 97 Intake and Output 10/12/19 10/13/19 19:00 07:00 Intake Total 1180 ml 500 ml Output Total 1900 ml 1075 ml Balance -720 ml -575 ml Intake Oral 1180 ml 500 ml Output Urine Total 1900 ml 1075 ml Laboratory Tests 10/12/19 12:04: POC Whole Blood Glucose [Pending] 10/12/19 16:15: POC Whole Blood Glucose [Pending] 10/12/19 20:13: POC Whole Blood Glucose [Pending] 10/13/19 05:25: White Blood Count 7.0, Red Blood Count 4.97, Hemoglobin 15.0, Hematocrit 45.7, Mean Corpuscular Volume 92, Mean Corpuscular Hemoglobin 30.2, Mean Corpuscular Hemoglobin Concent 32.9, Red Cell Distribution Width 12.4, Platelet Count 244, Mean Platelet Volume 6.8, Neutrophils (%) (Auto) 44.3L, Lymphocytes (%) (Auto) 39.7, Monocytes (%) (Auto) 10.7H, Eosinophils (%) (Auto) 4.5H, Basophils (%) ( Auto) 0.9, Sodium Level 141, Potassium Level 3.7, Chloride Level 107, Carbon Dioxide Level 29, Anion Gap 5, Blood Urea Nitrogen 11, Creatinine 1.0, Estimat Glomerular Filtration Rate > 60, Glucose Level 72L, Calcium Level 8.8 10/13/19 06:01: POC Whole Blood Glucose 85 Height (Feet): 5 Height (Inches): 7.00 Weight (Pounds): 160 General Appearance: no apparent distress Objective No change Mitch Domínguez MD Oct 13, 2019 10:09
[2019-10-13] MEDS ORDERED: cefTRIAXone 1 GM in D5W 55 ML IVPB ONE (11:30)
--- NOTE | 2019-10-13 12:30 | NUR ---
Hospital Coordinator: Received order for d/c. belongings and d/c instructions given to patient. pt left the floor with no signs of distress or other issues at this time.
--- NOTE | 2019-10-13 13:45 | Geriatric Medicine Prog Note ---
DATE: 10/09/2019 NOTE: VERY POOR AUDIO SUBJECTIVE: The patient indwelling Em catheter . OBJECTIVE: VITAL SIGNS: Stable. RESPIRATORY: Clear. CARDIOVASCULAR: Regular. LABORATORY DATA: . Sodium 139, potassium , chloride 105, CO2 27, BUN 13, creatinine , glucose 424 . Tom Rehman M.D. DR: ANN JOB#: [id number] CC:
--- NOTE | 2019-10-13 13:45 | Geriatric Medicine Prog Note ---
DATE: 10/12/2019 SUBJECTIVE: Improved diabetic control. He is awaiting urology consultation. PHYSICAL EXAMINATION: VITAL SIGNS: Stable. RESPIRATORY: Clear. CARDIOVASCULAR: . PLAN: Symptoms urinary retention requiring indwelling Em. Lantus insulin 20 units q.12 hours. Continue . Urology consultation with has been called, but is not done. . The patient will be discharged back to his primary physician. Tom Rehman M.D. DR: ANN JOB#: [id number] CC:
--- NOTE | 2019-10-13 13:45 | Consultation ---
DATE OF CONSULTATION: 10/10/2019 REFERRING PHYSICIAN: Norman Tafoya DO CONSULTING PHYSICIAN: Tom Rehman MD HISTORY OF PRESENT ILLNESS: I was asked to see this 58-year-old male by Dr. Norman Tafoya in endocrinology consultation for evaluation and management of type diabetes mellitus out of control. Patient is a known type 1 diabetic, who came here hypoglycemic and was seen by his primary doctor 2 days prior to admission . The patient . glucose of 718 after being 900 as an outpatient. His bicarb is 25, pH 7.3. I gave 3 L of IV normal saline, 2 units of insulin. Glucose fell to 459 coming under control. His hyperosmolar state is improving and the patient after receiving normal saline and will be started on Levemir insulin. Admitted to the telemetry unit. hyperosmolar state, nonketotic, and diabetic for several years. . ____ 720, glucose 718, . transfer. PHYSICAL EXAMINATION: In no acute distress. VITAL SIGNS: Blood pressure 132/83, pulse 90, respiratory rate 18, temperature HEAD AND NECK: . No jugular venous distention. ABDOMEN: Soft. Bowel sounds are normal. EXTREMITIES: No edema. NEUROLOGIC: Cranial nerves II through XII grossly intact. Toes downgoing. Glucose 459 . Started on Lantus insulin 20 units . Tom Rehman M.D. DR: LEONA JOB#: [id number] CC:
--- NOTE | 2019-10-14 09:40 | Discharge Summary ---
Discharge Summary Discharge Summary _ DATE OF ADMISSION: 10/10/2019 DATE OF DISCHARGE: 10/13/2019 DISCHARGED BY: Dr. Tafoya REASON FOR ADMISSION: 58 years old male with past medical history of insulin-dependent diabetes mellitus , was sent from the primary care doctor office due to abnormal labs. Patient apparently had a blood draw two days ago and was called home because his blood sugar was above 900. Patient reported being compliant with insulin regimen , but was not seen doctor for few months. Patient was recently in the emergency room due to urinary retention and was discharged with a Em catheter. Patient denied chest pain. No fever , shortness of breath or cough. No hemoptysis . No generalized weakness . Patient endorsed nausea. He denied back pain ,saddle anesthesia ,history of IV drug abuse. Upon evaluation vital signs were unremarkable. Accu-Chek was read as high. Physical examination revealed chronic indwelling Em catheter draining straw- colored urine ,no gross hematuria . 9 Abdominal exam was nontender and not peritoneal. Laboratory work-up was significant for critical hyperglycemia consistent with HHS. No evidence of DKA. pH 7.3. Serum osmolarity 325. Anion gap 10. Bicarb 25. Patient started on fluid resuscitation in emergency department and received 3 L of normal saline , followed-up by regular insulin of 10 units IV. Repeated Accu-Chek demonstrated downtrending blood glucose . There was no indication for insulin drip. Patient subsequently admitted to telemetry floor for further management. CONSULTANTS: straight tooth gear generator operator Dr. Domínguez exercise physiologist Dr. Rehman [facility] COURSE: Patient admitted to telemetry floor. Aggressive hydration continued. Machine Feeder Floorperson and exercise physiologist followed. Hemoglobin A1c 12.3, clearly not at goal. Blood sugar was managed as per exercise physiologist recommendation with long-acting Levemir and short acting pre-meal insulin. Diabetic diet and diabetic teaching provided. Patient will need further optimization of anti-glycemic regimen as outpatient with frequent follow-up with primary care provider or exercise physiologist. Rapid COVID-19 was negative . Urine culture revealed no evidence of growth . Blood cultures were negative. Renal parameters and electrolytes were closely monitored ,electrolytes corrected as needed, nephrotoxic's were avoided. Initial hyponatremia with sodium 131 was most likely due to dehydration . and resolved; prior to discharge sodium 141. Patient clinically stabilized and was ready for discharge. FINAL DIAGNOSES: Hyperglycemic hyperosmolar nonketotic coma Diabetes mellitus [id number] Electrolyte imbalance Hyponatremia -resolved DISCHARGE MEDICATIONS: See Medication Reconciliation list. DISCHARGE INSTRUCTIONS: Patient was discharged home. Patient was encouraged compliance with diabetic medication and diabetic diet. Patient to follow-up with a primary care provider next week with regular follow-up appointment to optimize blood sugar control. I have been assigned to dictate discharge summary for this account. I was not involved in the patient's management. Eun Ellis NP Oct 14, 2019 09:40
== END 2019-10-13 12:31 | disposition home or self-care (01) | DRG 420 ==
LOC: EDBD 15:43 → EMR 16:05 → 2E 17:35 → EDBEDREQ 20:20 → 3E 10-11 14:50
DX: E11.01 Type 2 diabetes mellitus with hyperosmolarity with coma (principal); E11.65 Type 2 diabetes mellitus with hyperglycemia; E46 Unspecified protein-calorie malnutrition; Z68.25 Body mass index [BMI] 25.0-25.9, adult; Z79.4 Long term (current) use of insulin; E87.1 Hypo-osmolality and hyponatremia
CPT/HCPCS: 36415; 36600; 80048; 80053; 80061; 80076; 81003; 82009; 82803; 82962; 82977; 83036; 83605; 83690; 83735; 83930; 84100; 84443; 84550; 85025; 87040; 87086; 93005; 96361; 96374; 99291; J1815; J7030; S5561; U0002

== ENCOUNTER → 2019-10-10 | Emergency (ER) | payer OTHER ==
[~2019-10-10] VITALS: Ht 172.7 cm; Wt 72.6 kg
[~2019-10-10] MED LIST changes: +ACTOS45 MG ORAL; +ATORVASTATIN CA40 MG ORAL; +Insulin Human Regular 100units/ml 3ml SUBQ ONE; +LOSARTAN POTASS25 MG ORAL; +METFORMIN HCL850 M1 ORAL; +NAPROXEN250 M1 PO; +PROSCAR5 MG ORAL
[2019-10-10 02:39] VITALS: BP 146/88
--- NOTE | 2019-10-10 03:26 | Emergency Room Report ---
History of Present Illness General Chief Complaint: Male Urogenital Problems Source: Patient Present Illness [facility] Disclaimer: Please note that this report is being documented using [employer] technology. This can lead to erroneous entry secondary to incorrect interpretation by the dictating instrument. HPI: 58-year-old male with a history of diabetes and BPH presents for evaluation of urinary retention. States he is unable to urinate for the past day. Is a chronic problem for the patient. Seen in the emergency department 2 weeks ago with similar presentation. He was given a Em cath her at that time and was discontinued shortly after this visit. He states he has been able to urinate up until yesterday morning. Noticed that abdominal pressure in the lower pelvis. Denies nausea, vomiting, fever, chills, diarrhea. Compliant with medication otherwise. No other issues today. Scheduled for evaluation by PMD tomorrow morning. 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 EOMI. Resp: Normal work of breathing Abdomen: Soft, distended in the suprapubic region moderate tenderness. No rebound. No masses. No upper abdominal tenderness. Skin: Intact. No abrasions, laceration or rash over the exposed skin MSK: Normal tone and bulk. Moving all extremities. No obvious deformity. Neuro: Awake and alert. Mentating appropriately Medical Decision Making Diagnostic Impression: Primary Impression: Urinary retention Additional Impression: Hyperglycemia ER Course Is a 58-year-old male with history of BPH presenting for evaluation of urinary retention. Em catheter was placed and patient evacuated nearly 2 L of urine. He is feeling much better. Labs were obtained showing no evidence of urinary tract infection and adequate renal function. He was hyperglycemic but no anion gap and no evidence of DKA. The patient states he is compliant with his diabetes medications but will give a dose of subcutaneous insulin in the ED and the patient will be discharged to follow-up with his PMD at his already scheduled appointment for this morning. A copy of his labs were provided to discuss his elevated blood sugar readings with his PMD. He will be discharged with Em leg bag. Instructed to return with new or worsening symptoms. He understands and agrees with this treatment plan. Laboratory Tests Test 10/10/19 03:23 Urine Color Pale yellow Urine Appearance Clear Urine pH 5 (4.5-8.0) Urine Specific [place] 1.015 (1.005-1.035) Urine Protein Negative (NEGATIVE) Urine Glucose (UA) 4+ (NEGATIVE) H Urine Ketones 3+ (NEGATIVE) H Urine Blood 2+ (NEGATIVE) H Urine Nitrite Negative (NEGATIVE) Urine Bilirubin Negative (NEGATIVE) Urine Urobilinogen Normal MG/DL (0.0-1.0) Urine Leukocyte Esterase Negative (NEGATIVE) Urine RBC 2-4 /HPF (0 - 0) H Urine WBC 0 /HPF (0 - 0) Urine Squamous Epithelial Cells Few /LPF (NONE/OCC) Urine Bacteria None /HPF (NONE) Sodium Level 134 MMOL/L (136-145) L Potassium Level 4.0 MMOL/L (3.5-5.1) Chloride Level 99 MMOL/L (98-107) Carbon Dioxide Level 27 MMOL/L (21-32) Anion Gap 8 mmol/L (5-15) Blood Urea Nitrogen 18 mg/dL (7-18) Creatinine 1.3 MG/DL (0.55-1.30) Estimated Glomerular Filtration Rate > 60 mL/min (>60) Glucose Level 398 MG/DL (74-106) H Calcium Level 9.7 MG/DL (8.5-10.1) Last Vital Signs Date Time Temp Pulse Resp B/P (MAP) Pulse Ox O2 Delivery O2 Flow Rate FiO2 10/10/19 02:39 98.4 96 19 146/88 99 Room Air Disposition: HOME, SELF-CARE Condition: Improved Referrals: Diana TIPTON,REFERRING (PCP) Graham Dyson MD Oct 10, 2019 03:25
[2019-10-10 03:37] LABS: APPEARANCE,URINE CLEAR; BILIRUBIN, URINE NEGATIVE (NEGATIVE); COLOR,URINE PALE YELLOW; GLUCOSE, URINE (UA) 4+ (NEGATIVE); KETONES,URINE 3+ (NEGATIVE); LEUKOCYTE ESTERASE ,URINE NEGATIVE (NEGATIVE); NITRITE,URINE NEGATIVE (NEGATIVE); PH,URINE 5 (4.5-8.0); PROTEIN,URINE NEGATIVE (NEGATIVE); UROBILINOGEN,URINE NORMAL MG/DL (0.0-1.0)
[2019-10-10 03:53] LABS: ANION GAP 8 mmol/L (5-15); BLOOD UREA NITROGEN 18 mg/dL (7-18); CALCIUM 9.7 MG/DL (8.5-10.1); CARBON DIOXIDE 27 MMOL/L (21-32); CHLORIDE 99 MMOL/L (98-107); CREATININE 1.3 MG/DL (0.55-1.30); SODIUM 134 MMOL/L (136-145)
[2019-10-10 04:20] VITALS: BP 134/78
== END | disposition home or self-care (01) ==
LOC: EDBD 02:36 → EDUNIT# 02:36 → EMR 03:10
DX: R33.9 Retention of urine, unspecified (principal); E11.65 Type 2 diabetes mellitus with hyperglycemia
CPT/HCPCS: 36415; 80048; 81003; J1815; Z7502; 99284

== ENCOUNTER 2019-10-29 00:10 | Emergency (ER) | payer OTHER ==
[~2019-10-29] VITALS: Ht 170.2 cm; Wt 71.7 kg
[~2019-10-29 00:10] MED LIST changes: +ACTOS45 MG ORAL; +ATORVASTATIN CA40 MG ORAL; +LOSARTAN POTASS25 MG ORAL; +METFORMIN HCL850 M1 ORAL; +NAPROXEN250 M1 PO; +PROSCAR5 MG ORAL
--- NOTE | 2019-10-29 00:19 | Emergency Room Report ---
History of Present Illness General Chief Complaint: Male Urogenital Problems Source: Patient, EMS Present Illness HPI Patient is a 58-year-old male well-known to this emergency room history of urinary retention and BPH who presents to the ER complaining of urinary retention. Patient states that his last Em catheter was placed 3 weeks ago. He states that he was last able to urinate 5 hours ago. Patient denies any fever or chills. He denies any nausea or vomiting. He complains of suprapubic tenderness. He denies any hematuria or dysuria. Patient was brought in by EMS. Allergies: Coded Allergies: No Known Allergies (Unverified , 07/25/19) COVID-19 Screening Contact w/high risk pt: No Recent Travel to affected area: No Experienced COVID-19 symptoms?: No COVID-19 Testing performed HOOK LOADER: No Patient History Reviewed Nursing Documentation: PMH: Agreed; PSxH: Agreed Nursing Documentation-PMH Hx Cardiac Problems: No Hx Diabetes: Yes Hx Cancer: No Hx Gastrointestinal Problems: No Hx Neurological Problems: No Review of Systems All Other Systems: negative except mentioned in HPI Physical Exam Vital Signs Date Time Temp Pulse Resp B/P (MAP) Pulse Ox O2 Delivery O2 Flow Rate FiO2 10/29/19 00:08 99 Room Air Sp02 EP Interpretation: reviewed, normal General Appearance: alert, GCS 15, non-toxic, moderate distress Head: normocephalic, atraumatic Eyes: bilateral eye normal inspection, bilateral eye PERRL ENT: hearing grossly normal, normal pharynx, no angioedema, normal voice Neck: full range of motion, supple/symm/no masses Respiratory: chest non-tender, lungs clear, normal breath sounds, speaking full sentences Cardiovascular #1: regular rate, rhythm, no edema Gastrointestinal: other - Suprapubic fullness and tenderness to palpation Rectal: deferred Genitourinary: no CVA tenderness Musculoskeletal: normal range of motion, moves extm spontaneously Neurologic: senior contracts manager III-XII nml as tested, oriented x3 Psychiatric: no suicidal/homicidal ideation Skin: no rash Lymphatic: no adenopathy Medical Decision Making Diagnostic Impression: Primary Impression: Urinary retention ER Course Em catheter in place with output of clear yellow urine. Patient reports improved pain. Suprapubic discomfort and fullness has improved. Patient switched to a leg bag. Patient will be discharged home with outpatient follow- up. Patient states that he has a prescription for Flomax. After discussing risks and benefits of further diagnostics, treatment plans, as well as indications for and risks of admission, the patient is agreeable to being discharged home. I have explained that their evaluation and treatment in the emergency department today is an important step towards them achieving better health but that their evaluation today is not intended to replace further evaluation and treatment by a physician in their local clinic. I have explained that while the current findings suggest no immediate life threatening emergency they will require further evaluation and treatment by a physician of their choice in their area. They understand that it will be necessary for them to review the final reports of their ED visit with their clinic physician. We have reviewed indications for return to the Emergency Department. I have explained that additional time may need to pass and/or additional testing as an outpatient may be necessary before a definitive diagnosis can be made. They tell me they are willing to follow up as instructed within the timeframe I recommend. They appear to understand what we discussed. Additionally they understand that if they are unable to be seen by an outpatient physician they are welcome, and in fact should, return to the Emergency Department for a repeat evaluation. The patient is stable at time of discharge. Laboratory Tests Test 10/29/19 00:15 Urine Color Colorless Urine Appearance Clear Urine pH 6.0 (4.5-8.0) Urine Specific [place] 1.010 (1.005-1.035) Urine Protein Negative (NEGATIVE) Urine Glucose (UA) 3+ (NEGATIVE) H Urine Ketones Negative (NEGATIVE) Urine Blood Negative (NEGATIVE) Urine Nitrite Negative (NEGATIVE) Urine Bilirubin Negative (NEGATIVE) Urine Urobilinogen Normal MG/DL (0.0-1.0) Urine Leukocyte Esterase Negative (NEGATIVE) Rhythm Strip Diag. Results Rhythm Strip Time: 00:19 EP Interpretation: yes - Cynthia Sheikh MD Rate: 80 bpm Rhythm: NSR, no PVC's, no ectopy Last Vital Signs Date Time Temp Pulse Resp B/P (MAP) Pulse Ox O2 Delivery O2 Flow Rate FiO2 10/29/19 00:08 99 Room Air Disposition: HOME, SELF-CARE Condition: Stable Additional Instructions: The patient was provided with discharge instructions, notified to follow-up with a primary care doctor and or specialist in the next 24-48 hours, and to return to the ED if they have worsening of their symptoms. Please note that this report is being documented using DRAGON technology. This can lead to erroneous entry secondary to incorrect interpretation by the dictating instrument. Cynthia Sheikh M.D. Oct 29, 2019 00:19
[2019-10-29 00:25] VITALS: BP 169/82
[2019-10-29 01:11] LABS: APPEARANCE,URINE CLEAR; COLOR,URINE COLORLESS; PROTEIN,URINE NEGATIVE (NEGATIVE)
[2019-10-29 01:12] LABS: BILIRUBIN, URINE NEGATIVE (NEGATIVE); GLUCOSE, URINE (UA) 3+ (NEGATIVE); KETONES,URINE NEGATIVE (NEGATIVE); LEUKOCYTE ESTERASE ,URINE NEGATIVE (NEGATIVE); NITRITE,URINE NEGATIVE (NEGATIVE); UROBILINOGEN,URINE NORMAL MG/DL (0.0-1.0)
== END 2019-10-29 01:40 | disposition home or self-care (01) ==
LOC: EDBD 00:10 → EMR 01:40
DX: R33.9 Retention of urine, unspecified (principal); E11.9 Type 2 diabetes mellitus without complications
CPT/HCPCS: 51702; 81003; Z7502; 99284

== ENCOUNTER 2019-12-26 08:12 | Inpatient (IN) | payer OTHER ==
[~2019-12-26] VITALS: Ht 167.6 cm; Wt 75.0 kg
[2019-12-26 08:30] VITALS: BP 126/76
--- NOTE | 2019-12-26 08:30 | NUR ---
ED Nurse Note: Patient walked in to ER stated "My BS is so high, I checked it at 5am and machine said High." Patient AAO x4, VSS at this time, was conected to monitor, IV line established on right upper arm 18ga, blood and urine collected sent to lab.
[2019-12-26 08:49] LABS: BASOPHILS % (AUTO) 1.6 % (0.0-2.0); EOSINOPHILS % (AUTO) 1.1 % (0.0-3.0); HEMATOCRIT 43.7 % (42.0-52.0); HEMOGLOBIN 13.7 G/DL (14.2-18.0); LYMPHOCYTES % (AUTO) 19.2 % (20.0-45.0); MEAN CORPUSCULAR VOLUME 95 FL (80-99); MONOCYTES % (AUTO) 8.8 % (1.0-10.0); NEUTROPHILS % (AUTO) 69.3 % (45.0-75.0); PLATELET COUNT 258 K/UL (150-450); RED BLOOD COUNT 4.58 M/UL (4.70-6.10); RED CELL DISTRIBUTION WIDTH 13.4 % (11.6-14.8); WHITE BLOOD COUNT 7.3 K/UL (4.8-10.8)
[2019-12-26 09:02] LABS: ANION GAP 7 mmol/L (5-15); BLOOD UREA NITROGEN 19 mg/dL (7-18); CALCIUM 9.7 MG/DL (8.5-10.1); CARBON DIOXIDE 29 MMOL/L (21-32); CHLORIDE 87 MMOL/L (98-107); CREATININE 1.5 MG/DL (0.55-1.30); POTASSIUM 4.5 MMOL/L (3.5-5.1); SODIUM 123 MMOL/L (136-145)
[2019-12-26 09:03] LABS: ALANINE AMINOTRANSFERASE 37 U/L (12-78); ALBUMIN 3.4 G/DL (3.4-5.0); ALBUMIN/GLOBULIN RATIO 0.8 (1.0-2.7); ALKALINE PHOSPHATASE 118 U/L (46-116); ASPARTATE AMINO TRANSFERASE 20 U/L (15-37); BILIRUBIN,TOTAL 0.7 MG/DL (0.2-1.0)
--- NOTE | 2019-12-26 09:10 | NUR ---
ED Nurse Note: Patient refused to placed bower catheter, stated will chateter him self
--- NOTE | 2019-12-26 09:20 | NUR ---
ED Nurse Note: patient's BS 927, patient aware of admission
[2019-12-26] MEDS ORDERED: Insulin Human Regular 100units/ml 3ml IV ONE (09:30)
[2019-12-26 09:35] LABS: APPEARANCE,URINE CLEAR; BILIRUBIN, URINE NEGATIVE (NEGATIVE); COLOR,URINE PALE YELLOW; GLUCOSE, URINE (UA) 4+ (NEGATIVE); KETONES,URINE 1+ (NEGATIVE); LEUKOCYTE ESTERASE ,URINE 1+ (NEGATIVE); NITRITE,URINE NEGATIVE (NEGATIVE); PH,URINE 6 (4.5-8.0); PROTEIN,URINE NEGATIVE (NEGATIVE); UROBILINOGEN,URINE NORMAL MG/DL (0.0-1.0)
[2019-12-26 10:38] VITALS: BP 130/80
[2019-12-26] MEDS ORDERED: LANTUS SOL100 UNIT/1 SUBQ (12:06)
[2019-12-26] MEDS ORDERED: NEURONTIN300 MG ORAL (12:06)
[2019-12-26] MEDS ORDERED: ACTOS45 MG ORAL (12:06)
[2019-12-26] MEDS ORDERED: METFORMIN HCL850 M1 ORAL (12:06)
[2019-12-26] MEDS ORDERED: LOSARTAN POTASS25 MG ORAL (12:06)
--- NOTE | 2019-12-26 12:48 | Emergency Room Report ---
History of Present Illness General Chief Complaint: Abnormal Labs Source: Patient Present Illness HPI 59-year-old male presents the ED for evaluation. States that his blood sugar is high. Per triage Accu-Chek is "high". History of diabetes. States he is on multiple medications. States he is compliant with them. States over the last 1 month his blood sugar has been greater than 400. States he has been to multiple emergency rooms for this, treated and discharged. States he has a PMD who tells him to go to the emergency room each time. Denies chest pain or shortness of breath. Denies any dizziness or weakness. No other aggravating relieving factors. Denies any other associated symptoms Allergies: Coded Allergies: No Known Allergies (Unverified , 07/25/19) COVID-19 Screening Contact w/high risk pt: No Recent Travel to affected area: No Experienced COVID-19 symptoms?: No COVID-19 Testing performed SIPHONER: No Patient History Past Medical History: none Past Surgical History: none Pertinent Family History: none Social History: Denies: smoking, alcohol use, drug use Immunizations: UTD Reviewed Nursing Documentation: PMH: Agreed; PSxH: Agreed Nursing Documentation-PMH Hx Cardiac Problems: No Hx Diabetes: Yes Hx Gastrointestinal Problems: No Hx Neurological Problems: No Review of Systems All Other Systems: negative except mentioned in HPI Physical Exam Vital Signs Date Time Temp Pulse Resp B/P (MAP) Pulse Ox O2 Delivery O2 Flow Rate FiO2 12/26/19 08:17 98.2 97 20 126/76 (93) 93 Room Air Sp02 EP Interpretation: reviewed, normal General Appearance: no apparent distress, alert, GCS 15, non-toxic Head: normocephalic, atraumatic Eyes: bilateral eye normal inspection, bilateral eye PERRL ENT: hearing grossly normal, normal pharynx, no angioedema, normal voice Neck: full range of motion, supple/symm/no masses Respiratory: chest non-tender, lungs clear, normal breath sounds, speaking full sentences Cardiovascular #1: regular rate, rhythm, no edema Cardiovascular #2: 2+ carotid (R), 2+ carotid (L), 2+ radial (R), 2+ radial (L), 2+ dorsalis pedis (R), 2+ dorsalis pedis (L) Gastrointestinal: normal bowel sounds, non tender, soft, non-distended, no guarding, no rebound Rectal: deferred Genitourinary: normal inspection, no CVA tenderness Musculoskeletal: back normal, normal range of motion, gait/station normal, non- tender Neurologic: alert, motor strength/tone normal, oriented x3, sensory intact, responsive, speech normal Psychiatric: judgement/insight normal, memory normal, mood/affect normal, no suicidal/homicidal ideation Reflexes: 3+ bicep (R), 3+ bicep (L), 3+ tricep (R), 3+ tricep (L), 3+ knee (R), 3+ knee (L) Lymphatic: no adenopathy Procedures Critical Care Time Critical Care Time i. I feel this is a highly complex case requiring extensive working including EKG/Rhythm strip, Xray/CT/US, Blood/urine lab work, repeat exams while in ED, and administration of strong opiates/narcotics for pain control, admission to hospital or close patient follow up. Total time: 30 min bedside evaluation and treatment excludes procedures (EKG). Reason for critical care: hyperglycemia Possible complications: hypotension, hypertension, RI, shock, arrhythmias, metabolic acidosis, end organ damage, respiratory failure. Interventions: Labs, IV fluids, EKG, insulin Course: Presenting with high Accu-Chek. Glucose greater than 900. Ketones negative. No anion gap. EKG unremarkable. Given IV fluids multiple liters. Given insulin. Repeat Accu-Chek improved. Consultations: nursing staff, EMS, family Performed by: Dr Ortega Tolerated well condition = serious j. because of unstable vital signs this patient had a condition that could potentially threaten life or limb. I feel this is a critical patient who required my full attention while patient was considered critical. Total Critical Care Time excluding procedures was greater than 30 minutes Medical Decision Making Diagnostic Impression: Primary Impression: Hyperglycemia ER Course Hospital Course 59-year-old male presenting to ED with generalized weakness, elevated finge rstick Differential diagnoses include: ETOH/drug ingestion, sepsis, DKA Clinical course Patient placed on stretcher. On nuclear monitoring technician. After initial history and physical I ordered labs, IV fluids, EKG Labs-glucose greater than 900, no evidence of DKA EKG - NSR no cute ischemic changes interpreted by me Insulin given. IV fluids given. Repeat Accu-Chek improved. Patient has had multiple ED visits with sugars not being well controlled. Patient will require hospitalization Case discussed with Dr. Lozano and he agreed to accept the patient to his service for further care and support i. I feel this is a highly complex case requiring extensive working including EKG/Rhythm strip, Xray/CT/US, Blood/urine lab work, repeat exams while in ED, and administration of strong opiates/narcotics for pain control, admission to hospital or close patient follow up. diagnosis - hyperglycemia admitted to floor in serious condition Laboratory Tests Test 12/26/19 08:24 12/26/19 08:30 12/26/19 08:37 POC Whole Blood Glucose Pending White Blood Count 7.3 K/UL (4.8-10.8) Red Blood Count 4.58 M/UL (4.70-6.10) L Hemoglobin 13.7 G/DL (14.2-18.0) L Hematocrit 43.7 % (42.0-52.0) Mean Corpuscular Volume 95 FL (80-99) Mean Corpuscular Hemoglobin 29.9 PG (27.0-31.0) Mean Corpuscular Hemoglobin Concent 31.3 G/DL (32.0-36.0) L Red Cell Distribution Width 13.4 % (11.6-14.8) Platelet Count 258 K/UL (150-450) Mean Platelet Volume 6.8 FL (6.5-10.1) Neutrophils (%) (Auto) 69.3 % (45.0-75.0) Lymphocytes (%) (Auto) 19.2 % (20.0-45.0) L Monocytes (%) (Auto) 8.8 % (1.0-10.0) Eosinophils (%) (Auto) 1.1 % (0.0-3.0) Basophils (%) (Auto) 1.6 % (0.0-2.0) Sodium Level 123 MMOL/L (136-145) L Potassium Level 4.5 MMOL/L (3.5-5.1) Chloride Level 87 MMOL/L (98-107) L Carbon Dioxide Level 29 MMOL/L (21-32) Anion Gap 7 mmol/L (5-15) Blood Urea Nitrogen 19 mg/dL (7-18) H Creatinine 1.5 MG/DL (0.55-1.30) H Estimat Glomerular Filtration Rate 58.1 mL/min (>60) Glucose Level 927 MG/DL (74-106) *H Calcium Level 9.7 MG/DL (8.5-10.1) Magnesium Level 2.2 MG/DL (1.8-2.4) Total Bilirubin 0.7 MG/DL (0.2-1.0) Aspartate Amino Transf (AST/SGOT) 20 U/L (15-37) Alanine Aminotransferase (ALT/SGPT) 37 U/L (12-78) Alkaline Phosphatase 118 U/L (46-116) H Total Protein 7.7 G/DL (6.4-8.2) Albumin 3.4 G/DL (3.4-5.0) Globulin 4.3 g/dL Albumin/Globulin Ratio 0.8 (1.0-2.7) L Acetone Level Negative (NEGATIVE) Urine Color Pale yellow Urine Appearance Clear Urine pH 6 (4.5-8.0) Urine Specific Streeter 1.005 (1.005-1.035) Urine Protein Negative (NEGATIVE) Urine Glucose (UA) 4+ (NEGATIVE) H Urine Ketones 1+ (NEGATIVE) H Urine Blood Negative (NEGATIVE) Urine Nitrite Negative (NEGATIVE) Urine Bilirubin Negative (NEGATIVE) Urine Urobilinogen Normal MG/DL (0.0-1.0) Urine Leukocyte Esterase 1+ (NEGATIVE) H Urine RBC 0 /HPF (0 - 0) Urine WBC 5-10 /HPF (0 - 0) H Urine Squamous Epithelial Cells Occasional /LPF Urine Bacteria Few /HPF (NONE) EKG Diagnostic Results Rate: normal Rhythm: NSR ST Segments: no acute changes ASA given to the pt in ED: No Rhythm Strip Diag. Results EP Interpretation: yes Rhythm: NSR, no PVC's, no ectopy Last Vital Signs Date Time Temp Pulse Resp B/P (MAP) Pulse Ox O2 Delivery O2 Flow Rate FiO2 12/26/19 10:38 98.2 79 20 130/80 95 Room Air Status: improved Disposition: ADMITTED INPATIENT Condition: Serious Referrals: H FABIO TIPTON,REFERRING (PCP) Manish Ortega MD Dec 26, 2019 12:48
[2019-12-26] MEDS ORDERED: Mylanta II UD 30ml ORAL PRN (13:15)
[2019-12-26] MEDS ORDERED: Miralax 17gm pkt ORAL PRN (13:15)
[2019-12-26] MEDS ORDERED: Albuterol/Ipratropium 3ml neb HHN PRN (13:15)
--- NOTE | 2019-12-26 13:34 | History and Physical ---
History of Present Illness General Date patient seen: Dec 26, 2019 Reason for Hospitalization: Abnormal Labs Present Illness HPI Mr. Chowdary is a 59M with PMH of poorly controlled Insulin dependent typ2 DM, HLD, and BPH who presents for fatigue and hyperglycemia. Patient reports waking up this morning feeling lethargic and weak; he checked his BG which was unreadable due to being too high. He called his PCP Dr. Gant whom instructed him to come to the ED for evaluation. Patient reports being diagnosed 13 years ago with DM, however, due to being incarnated for 13 years he did not recieve treatment for his DM. He was released on [place] in Apr 2019 which he was then put on actos, metformin and Insulin. His Insulin regimen is 50U qhs Lantus and 12U pre-meal; however, he takes his BG in the morning and before meals 3x per day and says its never below 400. He does not have an bsw. He admits to poor diet control but is compliant with his insulin regimen. He has been admitted multiple times to various hospitals for hyperglycemia. Denies any recents illnesss, sick contacts or travels. No fevers, chills, headaches, chest pain, sob, abdominal pain, n/v/d. In the ED, patient found to have BG > 900. No signs of DKA. Given two boluses of NS and insulin. To be admitted for HHS. PMH: Insulin dependent type 2 DM, HLD, BPH, left eye blindness Sx: none Fx: denies diabetes, cardiac, lung disease Soc: smokes 1/2 pack daily, denies drinking or drug use Allergies: Coded Allergies: No Known Allergies (Unverified , 07/25/19) COVID-19 Screening Contact w/high risk pt: No Recent Travel to affected area: No Experienced COVID-19 symptoms?: No Medication History Scheduled Atorvastatin Calcium* (Atorvastatin Calcium*), 40 MG ORAL BEDTIME, (Reported) Finasteride* (Proscar*), 5 MG ORAL DAILY, (Reported) Gabapentin (Neurontin), 300 MG ORAL BEDTIME, (Reported) Insulin Glargine (Lantus), 0 SUBQ BEDTIME, (Reported) Losartan Potassium* (Losartan Potassium*), 25 MG ORAL DAILY, (Reported) Losartan Potassium* (Losartan Potassium*), 25 MG ORAL DAILY, (Reported) Metformin Hcl* (Metformin Hcl*), 850 MG ORAL DAILY, (Reported) Metformin Hcl* (Metformin Hcl*), 850 MG ORAL DAILY, (Reported) Nitrofurantoin Monohyd/M-Cryst* (Macrobid 100 Mg*), 100 MG ORAL EVERY 12 HOURS Pioglitazone Hcl* (Actos*), 45 MG ORAL DAILY, (Reported) Pioglitazone Hcl* (Actos*), 45 MG ORAL DAILY, (Reported) Tamsulosin HCl (Flomax), 0.4 MG ORAL DAILY Miscellaneous Medications Naproxen (Naproxen), 500 MG PO, (Reported) Patient History Healthcare decision maker Resuscitation status Advanced Directive on File Review of Systems Constitutional: Reports: weakness; Denies: no symptoms, see HPI, chills, sweats, fever, malaise, other Eye: Denies: no symptoms, see HPI, eye pain, blurred vision, tearing, double vision, nose pain, nose congestion, acuity changes, discharge, other ENT: Denies: no symptoms, see HPI, ear pain, ear discharge, nose pain, nose congestion, throat pain, throat swelling, mouth pain, hearing loss, nasal disch arge, other Respiratory: Denies: no symptoms, see HPI, cough, orthopnea, shortness of breath, stridor, wheezing, M[place], sputum, other Cardiovascular: Denies: no symptoms, see HPI, chest pain, edema, palpitations, syncope, PND, other Gastrointestinal: Denies: no symptoms, see HPI, abdominal pain, constipation, diarrhea, nausea, vomiting, melena, hematemesis, other Genitourinary: Denies: no symptoms, see HPI, discharge, dysuria, frequency, hematuria, pain, retention, incontinence, urgency, vag bleed/dc, other Musculoskeletal: Denies: no symptoms, see HPI, back pain, gout, joint pain, joint swelling, muscle pain, muscle stiffness, other Skin: Denies: no symptoms, see HPI, rash, change in color, change in hair/nails, dryness, lesions, other Psychiatric: Denies: no symptoms, see HPI, prior hx, anxiety, depressed feelings, emotional problems, SI, HI, hallucinations, other Neurological: Denies: no symptoms, see HPI, headache, numbness, paresthesia, seizure, tingling, tremors, focal weakness, syncope, dizziness, other Endocrine: Denies: no symptoms, see HPI, excessive sweating, flushing, intolerance to temperature, increased thirst, increased urine, unexplained weight loss, other Hematologic/Lymphatic: Denies: no symptoms, see HPI, anemia, blood clots, easy bleeding, easy bruising, swollen glands, diathesis, other Physical Exam General Appearance: lethargic, alert oriented x3 HEENT: normocephalic, atraumatic Neck: non-tender, normal inspection Respiratory/Chest: lungs clear, normal breath sounds, no respiratory distress Cardiovascular/Chest: normal rate, regular rhythm, no JVD Abdomen: normal bowel sounds, non tender, soft Extremities: normal range of motion, non-tender 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 normal, oriented x 3 Musculoskeletal: normal muscle bulk Last 24 Hour Vital Signs Date Time Temp Pulse Resp B/P (MAP) Pulse Ox O2 Delivery O2 Flow Rate FiO2 12/26/19 10:38 98.2 79 20 130/80 95 Room Air 12/26/19 08:30 98.2 87 20 126/76 93 Room Air 12/26/19 08:17 98.2 97 20 126/76 (93) 93 Room Air Laboratory Tests Test 12/26/19 08:24 12/26/19 08:30 12/26/19 08:37 POC Whole Blood Glucose Pending White Blood Count 7.3 K/UL (4.8-10.8) Red Blood Count 4.58 M/UL (4.70-6.10) L Hemoglobin 13.7 G/DL (14.2-18.0) L Hematocrit 43.7 % (42.0-52.0) Mean Corpuscular Volume 95 FL (80-99) Mean Corpuscular Hemoglobin 29.9 PG (27.0-31.0) Mean Corpuscular Hemoglobin Concent 31.3 G/DL (32.0-36.0) L Red Cell Distribution Width 13.4 % (11.6-14.8) Platelet Count 258 K/UL (150-450) Mean Platelet Volume 6.8 FL (6.5-10.1) Neutrophils (%) (Auto) 69.3 % (45.0-75.0) Lymphocytes (%) (Auto) 19.2 % (20.0-45.0) L Monocytes (%) (Auto) 8.8 % (1.0-10.0) Eosinophils (%) (Auto) 1.1 % (0.0-3.0) Basophils (%) (Auto) 1.6 % (0.0-2.0) Sodium Level 123 MMOL/L (136-145) L Potassium Level 4.5 MMOL/L (3.5-5.1) Chloride Level 87 MMOL/L (98-107) L Carbon Dioxide Level 29 MMOL/L (21-32) Anion Gap 7 mmol/L (5-15) Blood Urea Nitrogen 19 mg/dL (7-18) H Creatinine 1.5 MG/DL (0.55-1.30) H Estimat Glomerular Filtration Rate 58.1 mL/min (>60) Glucose Level 927 MG/DL (74-106) *H Calcium Level 9.7 MG/DL (8.5-10.1) Magnesium Level 2.2 MG/DL (1.8-2.4) Total Bilirubin 0.7 MG/DL (0.2-1.0) Aspartate Amino Transf (AST/SGOT) 20 U/L (15-37) Alanine Aminotransferase (ALT/SGPT) 37 U/L (12-78) Alkaline Phosphatase 118 U/L (46-116) H Total Protein 7.7 G/DL (6.4-8.2) Albumin 3.4 G/DL (3.4-5.0) Globulin 4.3 g/dL Albumin/Globulin Ratio 0.8 (1.0-2.7) L Acetone Level Negative (NEGATIVE) Urine Color Pale yellow Urine Appearance Clear Urine pH 6 (4.5-8.0) Urine Specific [place] 1.005 (1.005-1.035) Urine Protein Negative (NEGATIVE) Urine Glucose (UA) 4+ (NEGATIVE) H Urine Ketones 1+ (NEGATIVE) H Urine Blood Negative (NEGATIVE) Urine Nitrite Negative (NEGATIVE) Urine Bilirubin Negative (NEGATIVE) Urine Urobilinogen Normal MG/DL (0.0-1.0) Urine Leukocyte Esterase 1+ (NEGATIVE) H Urine RBC 0 /HPF (0 - 0) Urine WBC 5-10 /HPF (0 - 0) H Urine Squamous Epithelial Cells Occasional /LPF Urine Bacteria Few /HPF (NONE) Height (Feet): 5 Height (Inches): 7.00 Weight (Pounds): 150 Medications Current Medications Medications (Trade) Dose Ordered Sig/Giselle Route PRN Reason Start Time Stop Time Status Last Admin Dose Admin Acetaminophen (Tylenol) 650 mg Q4H PRN ORAL Mild Pain (Pain Scale 1-3) 12/26/19 13:15 01/25/20 13:14 Acetaminophen (Tylenol) 650 mg Q4H PRN ORAL Temp >100.5 12/26/19 13:15 01/25/20 13:14 Al Hydroxide/Mg Hydroxide (Mylanta II) 30 ml Q6H PRN ORAL dyspepsia 12/26/19 13:15 01/25/20 13:14 Albuterol/ Ipratropium (Albuterol/ Ipratropium) 3 ml Q4HR PRN HHN Shortness of Breath 12/26/19 13:15 12/31/19 13:14 UNV Atorvastatin Calcium (Lipitor) 40 mg BEDTIME ORAL 12/26/19 21:00 03/25/20 20:59 UNV Dextrose (Dextrose 50%) 25 ml Q30M PRN IV Hypoglycemia 12/26/19 13:15 03/25/20 13:14 Dextrose (Dextrose 50%) 50 ml Q30M PRN IV Hypoglycemia 12/26/19 13:15 03/25/20 13:14 Heparin Sodium (Porcine) (Heparin 5000 units/ml) 5,000 units EVERY 12 HOURS SUBQ 12/26/19 21:00 02/09/20 20:59 UNV Insulin Detemir (Levemir) 50 units BEDTIME SUBQ 12/26/19 21:00 03/25/20 20:59 UNV Lactated Ringer's 1,000 ml @ 150 mls/hr Q6H40M IV 12/26/19 13:15 01/25/20 13:14 UNV Ondansetron HCl (Zofran) 4 mg Q6H PRN IVP Nausea & Vomiting 12/26/19 13:15 01/25/20 13:14 Polyethylene Glycol (Miralax) 17 gm HSPRN PRN ORAL Constipation 12/26/19 13:15 01/25/20 13:14 Assessment/Plan Assessment/Plan: Mr. Chowdary is a 59M with PMH of poorly controlled Insulin dependent typ2 DM, HLD, and BPH who presents for fatigue and hyperglycemia. 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 Wong, recs appreciated CODE: Full GI: none DVT: Heparin 5000U sub BID Diet: Low carbs diabetic Fluids: LR 150 cc Dispo: pending control of his sugars In addition to the usual care above I spent additional time reviewing records in the EMR and paper charts including physician documentation, nursing documentation, lab results, imaging and clinical documentation. Total time included was 31 min. Time spent on this encounter was 44 minutes which included 25 minutes of counseling and care coordination. I discussed with the nurse at bedside. Time of note may not reflect time patient was seen. Shree Romero D.O Dec 26, 2019 13:34
--- NOTE | 2019-12-26 16:19 | NUR ---
ED Nurse Note: report given to saira rn and kurt rn
--- NOTE | 2019-12-26 16:25 | NUR ---
ED Nurse Note: Patient was admited to TELE unit due to hyperglycemia. Patient was tgransfered to the unit via gurney, by ACLS protocol, with al belongings. Patient ambulatory with cane, AAO x4, VSS at this time, skin is intact, warm to touch.
--- NOTE | 2019-12-26 16:43 | NUR ---
NURSE NOTES: Report received from Connie CEVALLOS. Patient admitted from ER via gurney from home. Patient is alert x4, not in distress, no complaints of pain. Pt is ambulatory with steady gait. PIV right AC patent and intact. Admission orders are in place. Skin is intact. Belongings checked and accounted for. Bed low and locked, siderails up x2, educated on fall precautions, call light placed within reach and instructed to call nurse for assistance. Will continue with plan of care.
[2019-12-26] MEDS: NovoLOG Insulin Flexpen SUBQ SCH ×3 (17:46→21:55)
[2019-12-26] MEDS: LR 1000ml 1,000 ML IV SCH (17:49)
--- NOTE | 2019-12-26 18:29 | NUR ---
NURSE HAND-OFF REPORT: Important Events on Shift: Admitted from ER, last blood sugar 355 mg/dl, given insulin. Admission orders in. Patient Status: Stable Diet: CCHO low Pending Orders: none Pending Results/Labs: none Pending MD notification:none Latest Vital Signs: Temperature 98.2 , Pulse 79 , B/P 130 /80 , Respiratory Rate 20 , O2 SAT 95 , Room Air, O2 Flow Rate . Vital Sign Comment: EKG Rhythm: Rhythm change?: MD Notified?: - MD Response: Latest Valdes Fall Score: 45 Fall Risk: High Risk Safety Measures: Call light Within Reach, Bed Alarm Zone 1, Side Rails Side Rails x2, Bed position Low and Locked. Fall Precautions: Yellow Socks Patient Fall Education Report given to oncoming nurse. Roland díaz. Addendum: 12/26/19 at 1920 by Nisha Moreno RN Report given to Abbey Hemphill RN.
--- NOTE | 2019-12-26 19:20 | NUR ---
NURSE NOTES: rECIVED REPORT FROM BAN SIMON. PT IN BED AWAKE, ALERT, ORIENTED X4, ABLE TO MAKE NEEDS KNOWN. 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 IV IN ON RIGHT UPPER ARM RUNNING LR AT 75CC/HR, NO S/S INFILTRATION NOTED. NO C/O PAIN.BED IN LOW POSITION & LOCKED. SIDE RAILS UP X2. CALL LIGHT WITH IN REACH. CONTINUE PLAN OF CARE.
[2019-12-26 20:00] VITALS: BP 102/67
[2019-12-26] MEDS ORDERED: Levemir Flexpen SUBQ SCH (21:00)
[2019-12-26] MEDS: Atorvastatin 20mg tab ORAL SCH (21:49)
[2019-12-26] MEDS: Heparin 5000 units/ml inj SUBQ SCH (21:52)
[2019-12-27] VITALS: BP 100/60
[2019-12-27] MEDS: LR 1000ml 1,000 ML IV SCH ×3 (00:07→13:00)
[2019-12-27 04:00] VITALS: BP 114/72
[2019-12-27 05:11] LABS: BASOPHILS % (AUTO) 1.6 % (0.0-2.0); EOSINOPHILS % (AUTO) 1.3 % (0.0-3.0); HEMATOCRIT 35.2 % (42.0-52.0); HEMOGLOBIN 12.1 G/DL (14.2-18.0); LYMPHOCYTES % (AUTO) 32.3 % (20.0-45.0); MEAN CORPUSCULAR VOLUME 88 FL (80-99); MONOCYTES % (AUTO) 10.3 % (1.0-10.0); NEUTROPHILS % (AUTO) 54.6 % (45.0-75.0); PLATELET COUNT 260 K/UL (150-450); RED BLOOD COUNT 3.99 M/UL (4.70-6.10); RED CELL DISTRIBUTION WIDTH 12.7 % (11.6-14.8); WHITE BLOOD COUNT 9.1 K/UL (4.8-10.8)
[2019-12-27 05:51] LABS: BLOOD UREA NITROGEN 9 mg/dL (7-18); CALCIUM 8.6 MG/DL (8.5-10.1); CARBON DIOXIDE 30 MMOL/L (21-32); CHLORIDE 101 MMOL/L (98-107); CHOLESTEROL 119 MG/DL (< 200); CREATININE 0.9 MG/DL (0.55-1.30); HDL CHOLESTEROL 69 MG/DL (40-60); PHOSPHORUS 2.9 MG/DL (2.5-4.9); POTASSIUM 3.2 MMOL/L (3.5-5.1); SODIUM 136 MMOL/L (136-145); TRIGLYCERIDES 53 MG/DL (30-150)
[2019-12-27] MEDS: NovoLOG Insulin Flexpen SUBQ SCH ×7 (06:56→20:35)
--- NOTE | 2019-12-27 07:20 | NUR ---
NURSE HAND-OFF REPORT: Important Events on Shift:HAD EPISODE OF HYPOGLYCEMIA DR. GONZALES MADE AWARE, PO ORANGE GIVE TOLERATED WELL, BS NOW 145 COVERAGE GIVEN ORDERED Patient Status: STABLE Diet: CCHO LOW DIET Pending Orders: [] Pending Results/Labs:[] Pending MD notification:[] Latest Vital Signs: Temperature 98.2 , Pulse 82 , B/P 114 /72 , Respiratory Rate 18 , O2 SAT 94 , Room Air, O2 Flow Rate . Vital Sign Comment: [] EKG Rhythm: Sinus Rhythm Rhythm change?: N MD Notified?: N - MD Response: Latest Valdes Fall Score: 45 Fall Risk: High Risk Safety Measures: Call light Within Reach, Bed Alarm Zone 2, Side Rails Side Rails x2, Bed position Low and Locked. Fall Precautions: Patient Fall Education Report given to BAN YBARRA
[2019-12-27] MEDS ORDERED: Magnesium Oxide 400mg tab ORAL SCH (07:30)
[2019-12-27 08:00] VITALS: BP 103/66
--- NOTE | 2019-12-27 08:02 | NUR ---
NURSE NOTES: Pt awake/alert in bed, breathing easily on room air, denies SOB and denies pain at this time. Vital signs stable with SR @ 77 on monitor. IV access SAMARA with LR running at 150 ml/hr. Bed left in low position, side rails up x 2 and call light left near pt's hand.
[2019-12-27] MEDS: Heparin 5000 units/ml inj SUBQ SCH ×2 (09:00→20:46)
[2019-12-27] MEDS: Tamsulosin 0.4mg cap ORAL SCH (09:27)
--- NOTE | 2019-12-27 10:39 | NUR ---
CASE MANAGEMENT:REVIEW 59 YR OLD MALE WALKED IN TO ER CC: STATED HIS BLOOD SUGAR WAS TOO HIGH SI: HYPERGLYCEMIA. HYPONATREMIA 98.3 97 20 126/76 93% ON RA GLUCOSE+927 IS: IV INSULIN 1L NS BOLUS X2 : TO TELEMETRY DCP: FROM HOME Addendum: 12/27/19 at 1042 by SHAYY YAN LVN LVN [id number] BUN+19 CR+1.5
[2019-12-27 12:00] VITALS: BP 106/66
--- NOTE | 2019-12-27 14:16 | General Progress Note ---
Subjective Constitutional: Denies: no symptoms, chills, diaphoresis, fever, malaise, weakness, other HEENT: Denies: no symptoms, eye pain, blurred vision, tearing, double vision, ear pain, ear discharge, nose pain, nose congestion, throat pain, throat swelling, mouth pain, mouth swelling, other Cardiovascular: Denies: no symptoms, chest pain, edema, irregular heart rate, lightheadedness, palpitations, syncope, other Respiratory: Denies: no symptoms, cough, orthopnea, shortness of breath, SOB with excertion, SOB at rest, sputum, stridor, wheezing, other Gastrointestinal/Abdominal: Denies: no symptoms, abdomen distended, abdominal pain, black stools, tarry stools, blood in stool, constipated, diarrhea, difficulty swallowing, nausea, poor appetite, poor fluid intake, rectal bleeding, vomiting, other Genitourinary: Denies: no symptoms, burning, discharge, frequency, flank pain, hematuria, incontinence, pain, urgency, other Neurologic/Psychiatric: Denies: no symptoms, anxiety, depressed, emotional problems, headache, numbness, paresthesia, pre-existing deficit, seizure, tingling, tremors, weakness, other Endocrine: Denies: no symptoms, excessive sweating, flushing, intolerance to cold, intolerance to heat, increased hunger, increased thirst, increased urine, unexplained weight gain, unexplained weight loss, other Hematologic/Lymphatic: Denies: no symptoms, anemia, easy bleeding, easy bruising, other Allergies: Coded Allergies: No Known Allergies (Unverified , 07/25/19) Subjective no acute events overnight. Patient feels better this am. Noted to have low BG in 60's and felt tremors. Was given juice and food which resolved his symptoms. Objective Last 24 Hour Vital Signs Date Time Temp Pulse Resp B/P (MAP) Pulse Ox O2 Delivery O2 Flow Rate FiO2 12/27/19 04:00 79 12/27/19 04:00 98.2 82 18 114/72 (86) 94 12/27/19 00:00 80 12/27/19 00:00 98.0 84 18 100/60 (73) 95 12/26/19 21:00 Room Air 12/26/19 20:00 98.3 83 20 102/67 (79) 93 12/26/19 20:00 86 12/26/19 16:27 Room Air 12/26/19 16:25 98.2 79 20 130/80 95 Room Air Intake and Output 12/26/19 12/27/19 19:00 07:00 Intake Total 200 ml Output Total 250 ml Balance -50 ml Intake Oral 200 ml Output Urine Total 250 ml # Voids 2 Laboratory Tests 12/26/19 16:01: POC Whole Blood Glucose 301H 12/26/19 17:23: POC Whole Blood Glucose 355H 12/26/19 21:47: POC Whole Blood Glucose 279H 12/27/19 04:30: White Blood Count 9.1, Red Blood Count 3.99L, Hemoglobin 12.1L, Hematocrit 35.2L , Mean Corpuscular Volume 88, Mean Corpuscular Hemoglobin 30.2, Mean Corpuscular Hemoglobin Concent 34.3, Red Cell Distribution Width 12.7, Platelet Count 260, Mean Platelet Volume 6.4L, Neutrophils (%) (Auto) 54.6, Lymphocytes (%) (Auto) 32.3, Monocytes (%) (Auto) 10.3H, Eosinophils (%) (Auto) 1.3, Basophils (%) ( Auto) 1.6, Sodium Level 136#, Potassium Level 3.2L, Chloride Level 101, Carbon Dioxide Level 30, Blood Urea Nitrogen 9, Creatinine 0.9, Estimat Glomerular Filtration Rate > 60, Glucose Level 72#L, Hemoglobin A1c 14.0H, Calcium Level 8.6, Phosphorus Level 2.9, Magnesium Level 1.7L, Triglycerides Level 53, Cholesterol Level 119, LDL Cholesterol 39, HDL Cholesterol 69H, Cholesterol/HDL Ratio 1.7L 12/27/19 11:55: POC Whole Blood Glucose 178H Height (Feet): 5 Height (Inches): 6.00 Weight (Pounds): 146 General Appearance: no apparent distress, alert, alert oriented x3 EENT: PERRL/EOMI Neck: non-tender, normal inspection Cardiovascular: normal rate, regular rhythm, no JVD Respiratory/Chest: lungs clear, normal breath sounds, respiratory distress Abdomen: normal bowel sounds, non tender, soft Extremities: normal range of motion Edema: no edema noted Arm (L), no edema noted Arm (R), no edema noted Leg (L), no edema noted Leg (R), no edema noted Pedal (L), no edema noted Pedal (R), no edema noted 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 Chowdary is a 59M with PMH of poorly controlled Insulin dependent typ2 DM, HLD, and BPH who presents for fatigue and hyperglycemia. 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 Wong, recs appreciated CODE: Full GI: none DVT: Heparin 5000U sub BID Diet: Low carbs diabetic Fluids: LR 75 cc Dispo: doing better would like to see sugars better controlled, likely d/c home tomorrow Time spent on this encounter was 34 minutes which included 21 minutes of counseling and care coordination. I discussed with the nurse at bedside. Time of note may not reflect time patient was seen. Shree Romero D.O Dec 27, 2019 14:16
[2019-12-27 16:00] VITALS: BP 112/68
--- NOTE | 2019-12-27 19:30 | NUR ---
NURSE NOTES: Pt awake/alert and oriented x4, sitting up in bed, on room air, denies SOB, denies pain at this time. Vital signs stable with SR @ 76 on engine monitor. IV access SAMARA with LR running at 75 ml/hr. Bed in lowest position, side rails up x 2 and call light left within reach
[2019-12-27 20:00] VITALS: BP 109/61
[2019-12-27] MEDS: Atorvastatin 20mg tab ORAL SCH (20:39)
[2019-12-27] MEDS: Sennosides 8.6mg tab ORAL SCH (20:44)
[2019-12-27] MEDS ORDERED: Levemir Flexpen SUBQ SCH (21:00)
[2019-12-28] VITALS: BP 104/64
[2019-12-28] MEDS: LR 1000ml 1,000 ML IV SCH (01:29)
[2019-12-28 04:00] VITALS: BP 94/63
[2019-12-28] MEDS: NovoLOG Insulin Flexpen SUBQ SCH ×2 (06:25→06:26)
--- NOTE | 2019-12-28 07:30 | NUR ---
NURSE NOTES: Received pt from BAN Malik, Pt is awake and alert, pt is in RA, no SOB or acute respiratory distress noted. pt has intact iv access SAMARA 18G is running well. pt is on continues heart monitoring. pt is eating breakfast by observation. All needs attended, bed is locked and is in the lowest position, call light within easy reach. will continue to monitor.
--- NOTE | 2019-12-28 07:44 | NUR ---
NURSE HAND-OFF REPORT: Important Events on Shift:BG was 119 mg/dl last night, BG was 171 received 19 units, 15 standing units and 4 coverage, had pt eat before giving it to make sure BG would not go too low Patient Status: STABLE Diet: CCHO LOW DIET Pending Orders: [am labs] Pending Results/Labs:[am] Pending MD notification:[-] VSS EKG Rhythm: Sinus Rhythm Rhythm change?: N MD Notified?: N - MD Response: Latest Valdes Fall Score: 45 Fall Risk: High Risk Safety Measures: Call light Within Reach, Bed Alarm Zone 2, Side Rails Side Rails x2, Bed position Low and Locked. Fall Precautions: Patient Fall Education Report given to Fanny CEVALLOS
[2019-12-28 08:00] VITALS: BP 112/82
[2019-12-28 08:07] LABS: ANION GAP 7 mmol/L (5-15); BLOOD UREA NITROGEN 11 mg/dL (7-18); CALCIUM 8.8 MG/DL (8.5-10.1); CARBON DIOXIDE 29 MMOL/L (21-32); CHLORIDE 98 MMOL/L (98-107); CREATININE 1.1 MG/DL (0.55-1.30); PHOSPHORUS 3.2 MG/DL (2.5-4.9); SODIUM 134 MMOL/L (136-145)
[2019-12-28] MEDS: Tamsulosin 0.4mg cap ORAL SCH (08:17)
[2019-12-28] MEDS: Heparin 5000 units/ml inj SUBQ SCH (08:18)
[2019-12-28] MEDS: Sennosides 8.6mg tab ORAL SCH (08:18)
--- NOTE | 2019-12-28 09:00 | NUR ---
CASE MANAGEMENT:REVIEW 12/28/19 SI: HYPERGLYCEMIA. HYPONATREMIA 99.9 88 18 112/82 96% ON RA NA-134 GLUCOSE+291 IS: LEVEMIR SQ QHS NOVOLOG SQ TID FLOMAX PO QD PROSCAR PO QD NEURONTIN PO QHS LIPITOR PO QHS HEPARIN SQ Q12 IVF LR@75/HR : TELEMETRY STATUS DCP: FROM HOME
[2019-12-28] MEDS ORDERED: NOVOLOG100 UNITS1 SUBQ (09:40)
[2019-12-28] MEDS ORDERED: LEVEMIR FL100 UNIT/1 SUBQ (09:40)
[2019-12-28] MEDS ORDERED: SENNA8.6 M2 ORAL (09:40)
--- NOTE | 2019-12-28 09:43 | Discharge Instructions ---
Discharge Instructions Discharge Instructions Diet: diabetic calorie control Activity: resume normal activities Follow Up Orders Please call PCP tomorrow to schedule earliest appointment as we have discussed today. Continue pre-meal insulin at 15U and Lantus 45U at night, also do daily BG logs 3x per day to have ready for your PCP in case insulin needs to be readjusted Please follow strict carbohydrate limited diet as we discussed Please do not miss any insulin as we also discussed For Congestive Heart Failure Reminder Report to your physician any weight gain of 5 pounds or more in one week. Shree Romero D.O Dec 28, 2019 09:43
--- NOTE | 2019-12-28 09:54 | Discharge Summary ---
Discharge Summary Hospital Course Date of Admission Dec 26, 2019 at 10:10 Date of Discharge Admitting Diagnosis hyperglycemia HPI Tae Chowdary is a 59 year old male who was admitted on Dec 26, 2019 at 10:10 for Hyperglycemia Hospital Course Mr. Chowdary is a 59M with PMH of poorly controlled Insulin dependent typ2 DM, HLD, and BPH who presents for fatigue and hyperglycemia. Patient has been on insulin since Apr 2019 after his release from incarceration and has been hospitliztixed several times since then for hyperglycemia. He admits to poor insulin compliance as he will miss doses periodically along with a very poor diet; he admits to drinking alot of juice and soda. On this admission, BG > 900 but no signs of ketosis state. He was aggressively rehydrated and started on his home insulin regimen of 50U lantus nightly and 12U premeal. His sugars responded and dropped to as low as 70's. I cut back on his nightly lantus as his morning BG was low in the high 60's. Patient otherwise remained hemodynamically stable with no respiratory compromise. No electrolyte derangements. I had a lengthy discussion today about diet control and being compliant with his insulin everyday in order to improve his diabetes. Patient understands and agrees to be better. He will also call his PCP tomorrow to set up earliest appointment for follow up. He is medically stable for discharge home today. 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 which he understands and will try. - continue self catheterization as needed - continue home statin, tamsulosin, finasteride, and gabapentin - discussion about smoking cessation, patient would like to quit but not at this moment - has follow up appointment with prostate removal with Urology outpatient Time spent on this encounter was 45 minutes which included 25 minutes of counseling and care coordination. I discussed with the nurse at bedside. Time of note may not reflect time patient was seen. Discharge Discharge Vital Signs Last Vital Signs Date Time Temp Pulse Resp B/P (MAP) Pulse Ox O2 Delivery O2 Flow Rate FiO2 12/28/19 08:00 99.9 88 18 112/82 (92) 96 12/27/19 21:00 Room Air Discharge Disposition Patient was discharged to Discharge Instructions Discharge Instructions Activity: resume normal activities Shree Romero D.O Dec 28, 2019 09:54
--- NOTE | 2019-12-28 10:54 | NUR ---
NURSE NOTES: pt has D/C order, all discharge assessments and instructions done and pt verbally confirmed to understand all. pt is stable, V/S stable, all belongings checked with pt and are with pt. all pt's meds received from pharmacy and given to pt. iv access D/C. Pt wants to take bus. pt is ready to leave.
--- NOTE | 2019-12-28 12:35 | NUR ---
CASE MANAGEMENT: Faxed CM review and clinical info (face sheet /H&P / ER MD notes inc summary report / progress notes / lab and imaging reports) to [facility] @ [phone]
== END 2019-12-28 11:03 | disposition home or self-care (01) | DRG 420 ==
LOC: EMR 08:45 → 2E 10:10 → EDBEDREQ 14:52 → 2E 12-27 05:51
DX: E11.00 Type 2 diabetes mellitus with hyperosmolarity without nonketotic hyperglycemic-hyperosmolar coma (NKHHC) (principal); N17.9 Acute kidney failure, unspecified; N40.0 Benign prostatic hyperplasia without lower urinary tract symptoms; H54.7 Unspecified visual loss; E87.1 Hypo-osmolality and hyponatremia; F17.200 Nicotine dependence, unspecified, uncomplicated; G62.9 Polyneuropathy, unspecified; H54.62 Unqualified visual loss, left eye, normal vision right eye; E78.5 Hyperlipidemia, unspecified; Z79.4 Long term (current) use of insulin
CPT/HCPCS: 36415; 80048; 80053; 80061; 81003; 82009; 82962; 83036; 83735; 84100; 85025; 93005; 96361; 96374; 99291; J1815; J7030; J8499; S5561